=== PATIENT | male | born 1955 | race Caucasian/White ===

== ENCOUNTER 2024-12-03 09:27 | Emergency (ER) | payer MEDICARE, OTHER, SELFPAY ==
--- OUTSIDE RECORDS SUMMARY | 2024-11-21 15:15 | XMS_ITS | Encounter Summary ---
Author Organization [facility] [employer] [employer] s tem Address [facility] [id number] [address] [place] [address] Care Team Providers Care Credit Resolution Representative Name Role Phone Julio Valdivia MD Primary Care Provider [phone] Encounter Details Date Type Department Care Team (Late st Contact Info) Description 11/21/2024 3:15 PM EDT Office Visit [facility] [address] [place] [phone] Julio Valdivia MD [address] [place] [address], [address] [place], [place] [phone] Reactive airways dysfunction syndrome (CMS-HCC) (Primary Dx); Berylliosis (CMS-HCC); Class 1 obesity due to excess calories without serious comorbidity with body mass index (BMI) of 33.0 to 33.9 in adult Social History Tobacco Use Types Packs/Day Years Used Date Smoking Tobacco: Former Cigarettes 1.5 30.1 0 03/05/1968 - 04/03/1998 Smokeless Tobacco: Former Chew Alcohol Use Standard Drinks/Week Comments Not Currently 0 (1 standard drink = 0.6 oz pur e alcohol) Overall Financial Resource Strain (CARDIA) Answe r Date Recorded How hard is it for you to pa y for the very basics like food, housing, medical care, and heating? Not hard at all 06/14/2022 PHQ-2 Answer Date Recorded Total Score 2 07/01/2024 PRAPARE - Transportation Answer Date Re corded In the past 12 months, has l ack of transportation kept you from medical appointments or from getting medications? No 06/03 In the past 12 months, has l ack of transportation kept you from meetings, work, or from getting things needed for daily living? No 06/14/2022 Housing Instability Answer Date Recorde d Are you worried or concerned that in the next two months you may not have stable housing that you own, rent or stay in as a part of a household? No 06/14/2022 Childcare Answer Date Recorded Childcare Unknown 08/14/2018 Employment Answer Date Recorded Employment Unknown 08/14/2018 Hunger Screening Answer Date Recorded Within the past 12 months we worried whether our food would run out before we got money to buy more. Never True 04/29/2024 Within the past 12 months th e food we bought just didn't last and we didn't have money to get more. Never True 04/29/2024 Purpose - Life Answer Date Recorded Purpose and direction in life Unknown Sex and Gender Information Value Date Recorded Sex Assigned at Not on file Legal Sex Male 11:26 AM EDT Gender Identity Not on file Sexual Orientation Not on file Travel History Travel Start Travel End [facility] 11/02/2024 11/19/2024 documented as of this encounter Last Filed Vital Signs Vital Sign Reading Time Taken Comments Blood Pressure 139/85 11/21/2024 3:25 PM EDT Pulse 78 11/21/2024 3:25 PM EDT Temperature - - Respiratory Rate - - Oxygen Saturation 94% 11/21/2024 3:25 PM EDT Inhaled Oxygen Concentration - - Weight 114.3 kg (252 lb) 11/21/2024 3:25 PM EDT Height 185.4 cm (6' 1 ) 11/21/2024 3:25 PM EDT Body Mass Index 33.25 11/21/2024 3:25 PM EDT documented in this encounter Progress Notes * Julio Valdivia MD - 11/21/2024 3:15 PM EDT Subjective Patient ID: Idris Fierro is a 69 y.o. male. 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 Over the years he has also had symptoms suggestive of reactive airway disease. He was traveling recently. Since getting home he has noted frequent harsh nonproductive cough, easy exertional dyspnea, and some chest tightness. He feels like he has phlegm but it doesn't come up. No fever or chills. Some minor URI symptoms. No anginal chest pain or edema. The following portions of the patient's history were reviewed and updated as appropriate: allergies, current medications, past medical history, past social history, and problem list. Review of Systems Objective Physical Exam Constitutional: Comments: He is not acute distressed. SaO2 94% at rest in room air. HENT: Nose: No congestion or rhinorrhea. Cardiovascular: Rate and Rhythm: Normal rate and regular rhythm. Heart sounds: No murmur heard. No gallop. Pulmonary: Comments: Occasional harsh bronchospastic cough. No rales or wheezes. Musculoskeletal: Right lower leg: No edema. Left lower leg: No edema. Lymphadenopathy: Cervical: No cervical adenopathy. Assessment/Plan His weight contributes to his chronic dyspnea but is not the primary or only issue at this time. Hehas in the past had Wixela inhaler and use of that might provide his some benefit. He is interestedin GLP1 agonist trial for weight loss. Medication discussed. Will send in a script and see if it iscovered/affordable. Diagnoses and all orders for this visit: Reactive airways dysfunction syndrome ([facility]-HCC) - predniSONE (DELTASONE) 20 mg tablet; Take 2 tablets (40 mg total) by mouth in the morning for 5 days. - doxycycline (VIBRA-TABS) 100 mg tablet; Take 1 tablet (100 mg total) by mouth in the morning and 1 tablet (100 mg total) in the evening. Do all this for 7 days. - guaiFENesin (MUCINEX) 1,200 mg tablet extended release 12hr; Take 1 tablet by mouth in the morning and 1 tablet in the evening. Berylliosis ([facility]) Class 1 obesity due to excess calories without serious comorbidity with body mass index (BMI) of 33.0 to 33.9 in adult - tirzepatide, weight loss, 2.5 mg/0.5 mL pen injector; Inject 2.5 mg under the skin every 7 days. documented in this encounter Plan of Treatment Upcoming Encounters Date Type Department Care Team (Late st Contact Info) Description 05/12/2025 1:00 PM EDT Office Visit [facility] [address] [place] [address] [place] [address] [place] [phone] Sundeep Rodriguez MD [address] [place] [address] documented as of this encounter Goals Goal Patient Goal Type Associated Problems Recent Progress Patient-Stated? Author Home, outpt therapy General Yes Teir Fernandez LSW Note: Evaluation of progress towards goal: Pt's discharge goal is home with and outpt therapy. 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
[2024-12-03] VITALS (16 sets, daily range): BP systolic 96–116; BP diastolic 68–87; PULSE 78–97; TEMP 36.7; O2SAT 57–96; BMI 31.7
--- OUTSIDE RECORDS SUMMARY | 2024-12-03 09:39 | XMS_ITS | Encounter Summary ---
Author Organization [employer] Sys [employer] Address [id number] [address] [place] [address] Care Team Providers Care Laboratory Chemist Name Role Phone Julio Valdivia MD Primary Care Provider [phone] Encounter Details Date Type Department Care Team (Latest Contact Info) Description 11/20/2024 Travel Social History Tobacco Use Types Packs/Day Years [...] file Travel History Travel Start Travel End [facility] 11/02/2024 11/19/2024 documented as of this encounter Plan of Treatment Upcoming Encounters Date Type Department Care Team (Late st Contact Info) Description 05/12/2025 1:00 PM EDT Office Visit [facility] [address] [place] [address] [place] [address] [phone] Sundeep Rodriguez MD [address] [place] [address] documented as of this encounter Goals Goal Patient Goal Type Associated Problems Recent Progress Patient-Stated? Author Home, outpt therapy General Yes Teri Fernandez LSW Note: Evaluation of progress towards goal: Pt's discharge goal is home with and outpt therapy. - J CARLOS KAUR 03/14/19 3:06 PM documented as of this encounter Visit Diagnoses Not on filedocumented in this encounter Additional Health Concerns Assessment Noted Time PHQ-9 Depression Total Score: 2 07/02/19 25 10:00 AM EDT documented as of this encounter Care Teams Laboratory Chemist Relationship Specialty Start Date End Date Julio Valdivia MD [address] [place] [address], [address] [place], [place] [phone] PCP - General Pediatrics 03/14/16 Adrian Torres RN [facility] Nurse - [employer] 07/19/23 documented as of this encounter
--- OUTSIDE RECORDS SUMMARY | 2024-12-03 09:39 | XMS_ITS | Encounter Summary ---
Author Organization [facility] [employer] Sys tem Address [id number] [address] [place] [address] Care Team Providers Care Help Desk Manager Name Role Phone Julio Valdivia MD Primary Care Provider [phone] Encounter Details Date Type Department Care Team (Late Contact Info) Description 03/24/2022 Orders Only [facility] [address] [facility] [address] [place] [phone] External, Scanning Provider Social History Tobacco Use Types Packs/Day Years Used Date Smoking Tobacco: Former Cigarettes 1.5 30.1 0 03/05/1968 - 04/03/1998 Smokeless Tobacco: Former Chew Alcohol Use Standard Drinks/Week Comments Not Currently 0 (1 standard drink = 0.6 oz pur e alcohol) PHQ-2 Answer Date Recorded Total Score 0 08/30/2020 Childcare Answer Date Recorded Childcare Unknown 08/14/2018 Employment Answer Date Recorded Employment Unknown 08/14/2018 Purpose - Life Answer Date Recorded Purpose and direction in life Unknown Sex and Gender Information Value Date Recorded Sex Assigned at Not on file Legal Sex Male 11:26 AM EDT Gender Identity Not on file Sexual Orientation Not on file Travel History Travel Start Travel End [facility] 11/02/2024 11/19/2024 documented as of this encounter Plan of Treatment Upcoming Encounters Date Type Department Care Team (Late Contact Info) Description 05/12/2025 1:00 PM EDT Office Visit [facility] [address] [place] [address] [place] [address] Sundeep Rodriguez MD [facility] [place] [address] documented as of this encounter Goals Goal Patient Goal Type Associated Problems Recent Progress Patient-Stated? Author Home, outpt therapy General Yes Teri Fernandez LSW Note: Evaluation of progress towards goal: Pt's discharge goal is home with and outpt therapy. - J CARLOS KAUR 03/14/19 3:06 PM documented as of this encounter Procedures Procedure Name Priority Date/Time Associated Diagnosis Comments MULTIPLE LABS Routine 03/23/2022 XR CHEST 2 VWS Routine 03/23/2022 documented in this encounter Results * Multiple labs (03/23/2022) 03/23/2022 us Scanning Provider External [facility] Final Result MANUALLY TRANSCRIBED RESULTS * X-ray chest 2 views (03/23/2022) Anatomical Region Laterality Modality Body, Chest N/A Computed Radiogr aphy 03/23/2022 us Scanning Provider External IMG DIAGNOSTIC IMAGIN G ORDERABLES Final Result documented in this encounter Visit Diagnoses Not on filedocumented in this encounter Additional Health Concerns Assessment Noted Time PHQ-9 Depression Total Score: 0 08/31/19 21 8:36 AM EDT documented as of this encounter Care Teams Help Desk Manager Relationship Specialty Start Date End Date Julio Valdivia MD [address] [place] [address], [address] [place] [address] PCP - General Pediatrics 03/14/16 Adrian Torres RN [facility] Nurse - [employer] 07/19/23 documented as of this encounter
--- OUTSIDE RECORDS SUMMARY | 2024-12-03 09:39 | XMS_ITS | Encounter Summary ---
Author Organization [facility] Sys tem Address [facility] [id number] [address] [place] [address] Care Team Providers Care High School Tutor Name Role Phone Julio Valdivia MD Primary Care Provider [phone] Encounter Details Date Type Department Care Team (Late st Contact Info) Description 03/15/2023 Orders Only [facility] [address] [phone] External, Scanning Provider Social History Tobacco Use [...] 06/14/2022 PHQ-2 Answer Date Recorded Total Score 0 08/30/2020 PRAPARE - Transportation Answer Date Re corded [...] got money to buy more. Never True 01/24/2023 Within the past 12 months th e food we bought just didn't last and we didn't have money to get more. Never True 01/24/2023 Purpose - Life Answer Date Recorded Purpose and direction in life Unknown Sex and Gender Information Value Date Recorded Sex Assigned at Not on file Legal Sex Male 11:26 AM EDT Gender Identity Not on file Sexual Orientation Not on file Travel History Travel Start Travel End [facility] 11/02/2024 11/19/2024 documented as of this encounter Plan of Treatment Upcoming Encounters Date Type Department Care Team (Late st Contact Info) Description 05/12/2025 1:00 PM EDT Office Visit [facility] [address] [place] [address] [place] [phone] Sundeep Rodriguez MD [facility] [place] [address] documented as of this encounter Goals Goal Patient Goal Type Associated Problems Recent Progress Patient-Stated? Author Home, outpt therapy General Yes Teri Fernandez LSW Note: Evaluation of progress towards goal: Pt's discharge goal is home with and outpt therapy. - J CARLOS KAUR 03/14/19 3:06 PM documented as of this encounter Procedures Procedure Name Priority Date/Time Associated Diagnosis Comments XR CHEST 2 VWS Routine 03/09/2023 documented in this encounter Results * X-ray chest 2 views (03/09/2023) Anatomical Region Laterality Modality Body, Chest N/A Computed Radiogr aphy 03/09/2023 us Scanning Provider External IMG DIAGNOSTIC IMAGIN G ORDERABLES Final Result documented in this encounter Visit Diagnoses Not on filedocumented in this encounter Additional Health Concerns Assessment Noted Time PHQ-9 Depression Total Score: 0 08/31/19 21 8:36 AM EDT documented as of this encounter Care Teams High School Tutor Relationship Specialty Start Date End Date Julio Valdivia MD [address] [place] [address], [address] [place] [phone] PCP - General Pediatrics 03/14/16 Adrian Torres RN [facility] 07/19/23 documented as of this encounter
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
--- OUTSIDE RECORDS SUMMARY | 2024-12-03 09:39 | XMS_ITS | Clinical Summary ---
Author Organization [facility] tem Address [facility] [id number] [address] [place] [address] Care Team Providers Care Supervisor [employer] Name Role Phone Julio Valdivia MD Primary Care Provider [phone] Allergies No known active allergies Medications alfuzosin (UROXATRAL) 10 mg 24 hr tablet Take 1 tablet (10 mg total) by mouth in the morning. 90 tablet 3 4 Active albuterol (PROVENTIL HFA;VENTOLIN HFA) 90 mcg/actuation inhaler INHALE 2 PUFFS BY MOUTH EVERY 6 HOURS NEEDED FOR SHORTNESS OF BREATH 5 Active guaiFENesin (MUCINEX) 1,200 mg tablet extended release 12hrIndications :Reactive airways dysfunction syndrome (CMS-HCC) Take 1 tablet by mouth in the morning and 1 tablet in the evening. 20 each 5 Active tirzepatide, weight loss, 2.5 mg/0.5 mL pen injectorIndicat ions:Class 1 obesity due to excess calories without serious comorbidity with body mass index (BMI) of 33.0 to 33.9 in adult Inject 2.5 mg under the skin every 7 days. 2 mL 5 Active predniSONE (DELTASONE) 20 mg tablet Take 2 tablets (40 mg total) by mouth in the morning for 5 days. 10 tablet 5 12/09/19 25 Active predniSONE (DELTASONE) 20 mg tabletIndicatio ns:Reactive airways dysfunction syndrome (CMS-HCC) Take 2 tablets (40 mg total) by mouth in the morning for 5 days. 10 tablet 5 11/27/19 25 doxycycline (VIBRA-TABS) 100 mg tabletIndicatio ns:Reactive airways dysfunction syndrome (CMS-HCC) Take 1 tablet (100 mg total) by mouth in the morning and 1 tablet (100 mg total) in the evening. Do all this for 7 days. 14 tablet 5 11/29/19 25 predniSONE (DELTASONE) 20 mg tablet Take 2 tablets (40 mg total) by mouth in the morning for 5 days. 10 tablet 5 12/04/19 25 Discontinu ed(Reorder ) Active Problems Patient Care Coordination No te Formatting of this note migh t be different from the original. Osteoarthritis/ GERD Care Plan: [03/23/2023] [employer] Added: Nurse to instruct on: the purpose of your medications and the importance of adherence the importance of your care plan the importance of preventative screenings and what they mean to your health your GERD and Osteoarthritis, its diagnosis and treatment the importance of recognizing daytime heartburn, nighttime heartburn, difficulty swallowing, indigestion, sore throat, feeling like something is stuck in the throat, and dry cough as a S&S of your GERD the importance of recognizing joint pain, joint tenderness, joint stiffness, loss of flexibility, limited range of motion, grating sensation, bone spurs, and clicking or cracking sound when a joints bends as a S&S of your Osteoarthritis Nurse to assist in: scheduling your appointments, as needed setting a goal to reduce pain, continue with current treatment plans, and increase joint mobility and range of motion Patient to verbalize understanding of: the importance of your care plan keeping a written list of your medications preventative screenings and what they mean to your health your medications and the importance of adherence monitoring Pain Scale your GERD, its diagnosis, process and treatment your Osteoarthritis, its diagnosis, process and treatment the importance of recognizing daytime heartburn, nighttime heartburn, difficulty swallowing, indigestion, sore throat, feeling like something is stuck in the throat, and dry cough as a S&S of your GERD the importance of recognizing joint pain, joint tenderness, joint stiffness, loss of flexibility, limited range of motion, grating sensation, bone spurs, and clicking or cracking sound when a joints bends as a S&S of your Osteoarthritis Patient to commit to: reduce pain continue with current treatment plans increase joint mobility and range of motion 2023 Wellness Goals: Over the next 12 months, Patient will go to appointments with: ENT/ Flash Designer Cut Off Operator Scorer Urologist Primary Care Provider Over the next 12 months, Patient will complete the following tests, immunizations, and preventative screenings: Annual Wellness Visit Depression Screening Fall Risk Assessment Flu vaccine Tdap Vaccine Prostate Screening 2023 Education: Problem Noted Date Diagnosed Date Lower urinary tract symptoms (LUTS) 02/05/2023 History of colonic polyps 06/15/2020 Overview (06/15/2020): Added automatically from request for surgery [id number] Screening for prostate cancer 02/04/2020 Overview (02/04/2020): 02/04/20: PSA 2.03 Berylliosis 01/12/2020 Knee pain 01/12/2020 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 Although it seems counter intuitive with his history of retention, I think it would be worth having him try Myrbetriq 50 mg nightly. We will see him in the short-term to recheck PVR. 02/04/20: Minimal improvement with Myrbetriq 50 mg. PVR 10. He is not interested in pursuing any additional diagnostic or treatment options at this time. 01/24/23: Persistent symptoms. Interested in a trial of Uroxatral. Also advised cutting back on his fluid intake. We will schedule cystoscopy Assessment & Plan (01/24/2023 5:07 PM EST): If his symptoms resolve with Uroxatral, he can cancel the cystoscopy. He is also due for his PSA. I will notify him of the results through [facility] Assessment & Plan (02/04/2020 4:41 PM EST): He would like to follow-up as needed. Assessment & Plan (12/10/2019 5:26 PM EDT): I advised that he monitor his blood pressure and discontinue if elevated. He will go to the lab to check PSA as well. I will call him with the results. Mechanical loosening of prosthetic knee 11/14/19 19 Overview (11/13/2018): Added automatically from request for surgery [id number] Primary osteoarthritis of right knee 01/31/2018 Overview (01/31/2018): Added automatically from request for surgery [id number] Erectile dysfunction 12/04/2017 Overview (12/04/2017): ED - successfully treated with sildenafil. Prescription for generic provided with recommendation to separate from tamsulosin by 4 hr Primary osteoarthritis of left knee 05/22/2017 Overview (05/22/2017): Added automatically from request for surgery [id number] Bilateral primary osteoarthritis of knee 018 Trochanteric bursitis of left hip 05/10/2017 Urinary retention 05/01/2017 Overview (04/29/2024): Lifelong history of voiding dysfunction Now with progressive luts. Some mild improvement with tamsulosin, no change with caffeine decreased consumption Improved with increase tamsulosin to b.i.d.. PVR improved. He is satisfied currently. Plan recheck 12 motvas 01/25: Tamsulosin no longer working. No improvement with Myrbetriq. Initial improvement with Uroxatral but that has also failed with poor flow and feelings of incomplete emptying. 02/27/2023: Cysto with bilobar hyperplasia. Findings reviewed with he and his after cystoscopy. Options are continuing Uroxatral versus consideration for surgical intervention with TURP. Side effects as outlined in the consent reviewed with him. He was going to discuss with his at home and let me know if you would like proceed. For now plan to continue Uroxatral. 04/29/24: stable using uroxatral Hematospermia 05/01/2017 Overview (05/01/2017): One episode of hematospermia 2016. This is benign. PSA normal. Reactive airways dysfunction syndrome 07/14/2015 BPH (benign prostatic hyperplasia) Encounters Date Type Department Care Team Description 12/03/2024 Orders Only [facility] [address] [place] [id number] Julio Valdivia MD 12/02/2024 Telephone [facility] [address] [facility] [place] [address] Julio Valdivia MD 11/21/2024 3:15 PM EDT Office Visit [facility] [address] [place] [address] Julio Valdivia MD Reactive airways dysfunction syndrome (CMS-HCC) (Primary Dx); Berylliosis (CMS-HCC); Class 1 obesity due to excess calories without serious comorbidity with body mass index (BMI) of 33.0 to 33.9 in adult 11/20/2024 Travel from Last 3 Months Immunizations Immunization Administration Dates Next Due COVID-19, mRNA, LNP-S, PF, 1 00mcg/0.5mL Dose 06/29/2020,06/01/2020 Hep B, Adolescent or Pediatric 11/16/2011,2011,05/04/2011 Influenza High Dose Preservative Free IM 018 Influenza Vaccine, Quadrivalent, Adjuvanted 01/04,12/19/2021 Influenza, Injectable, quadrivalent (PF) 020,12/05/2018 Zoster Vaccine Recombinant 03/03/2020,12/16/2019 Family History Medical History Relation Name Comments Brain Tumor Brother Mackey syndrome Daughter Arthritis Father Idirs Fierro Blood Clots Father Idris Fierro Cirrhosis Father Idris Fierro non alcohol Heart attack Father Idris Fierro Snoring Father Idris Fierro Cancer Mother 92 skin Colon cancer Mother 92 Mental illness Mother 92 Other Mother 92 colon issues Snoring Mother 92 Thyroid disease Mother 92 No Known Problems Sister 1 Marge Arthritis Sister 2 Destini Arthritis Sister 3 Santos Arthritis Sister 4 Camilla No Known Problems Sister 5 Nasrin Glaucoma Sister 6 Sheila No Known Problems Son Relation Name Status Comments Brother Daughter Alive Father Idris Fierro Mother 92 Sister 1 Marge Alive Sister 2 Destini Alive Sister 3 Santos Alive Sister 4 Camilla Alive Sister 5 Nasrin Alive Sister 6 Sheila Alive Son Alive Social History Tobacco Use Types Packs/Day Years Used Date Smoking Tobacco: Former Cigarettes 1.5 30.1 0 03/05/1968 - 04/03/1998 Smokeless Tobacco: Former Chew Tobacco Cessation:Counseling Given: No Alcohol Use Standard Drinks/Week Comments Not Currently [...] file Travel History Travel Start Travel End [facility] 11/02/2024 11/19/2024 Last Filed Vital Signs Vital Sign Reading Time Taken Comments Blood Pressure 139/85 11/21/2024 3:25 PM EDT Pulse 78 11/21/2024 3:25 PM EDT Temperature 36.4 C (97.6 F) 01/13/2022 1:22 PM EST Respiratory Rate 15 12/14/2020 10:25 AM EDT Oxygen Saturation 94% 11/21/2024 3:25 PM EDT Inhaled Oxygen Concentration - - Weight 114.3 kg (252 lb) 11/21/2024 3:25 PM EDT Height 185.4 cm (6' 1 ) 11/21/2024 3:25 PM EDT Body Mass Index 33.25 11/21/2024 3:25 PM EDT Plan of Treatment Upcoming Encounters Date Type Department Care Team (Late st Contact Info) Description 05/12/2025 1:00 PM EDT Office Visit [facility] [address] [place] [address] [place] [address] [place] [address] Sundeep Rodriguez MD [address] [place] [address] Health Maintenance Due Date Last Done Comments Adult BMI Follow Up Plan 05/04/1973 DTaP,Tdap and Td Vaccines (1 - Tdap) 05/04/1974 Abdominal Aortic Aneurysm (A AA) Screen 05/04/2020 COVID-19 Vaccine (2023-2 5 season) 2024 11/27/2023, 01/26/2023, 12/19/2021, Additional history exists Influenza Vaccine 11/03/2024 11/27/2023, , 12/19/2021, Additional history exists Depression Screening 07/01/2025 07/01/2024 Fall Risk Screening 07/01/2025 07/01/2024 Medicare Annual Wellness Visit 07/01/2025 07/01/2024 Adult BMI Screening 11/21/2025 11/21/2024 Tobacco Screening 11/21/2025 11/21/2024 Colonoscopy 07/23/2030 07/23/2020, 07/04, 07/23/2020, Additional history exists Zoster (Shingles) Vaccine Completed 03/03/2020, Goals Goal Patient Goal Type Associated Problems Recent Progress Patient-Stated? Author Home, outpt therapy General Yes Teri Fernandez LSW Note: Evaluation of progress towards goal: Pt's discharge goal is home with and outpt therapy. - J CARLOS KAUR 03/14/19 3:06 PM Medical Devices Implanted Type Area Mcat Tutor Device Identifier Shelf Expiration Date Model / Serial / Lot Cement Bn Palacos Radpq 40g Rpl [id number] - [id number] Implanted:Qty : 2 on 06/12/2017 by Rubén Hayes MD at [facility] Cement Left: Knee [employer] 02/01/2022 [id number] 1 / / [id number] Cmnt Bn Bio 40gm Rpl [id number] +[id number] - [id number] Implanted:Qty : 2 on 03/14/2019 by Rubén Hayes MD at [facility] Cement Right: Knee [employer] 02/01/2023 [id number] / / [id number] Mesh Clgn Parietex 4.6cm Comp Rsrb Xpd Ptch Slf Cntr Srg Sm Rpl [id number] +[id number] - Sna - [id number] Implanted:Qty : 1 on 12/14/2020 by Abner Maldonado DO at [facility] Mesh N/A: Abdomen [employer] 10/02/2024 PCO4VP / NA / [id number] Knee All-Poly Pat 38mm - [id number] Implanted:Qty : 1 on 06/12/2017 by Rubén Hayes MD at [facility] Orthopedic Implant Left: Knee [employer] 04/04/2025 [id number] / / [id number] Cmpt Fem 10 Std Kn Lt Cmnt - [id number] Implanted:Qty : 1 on 06/12/2017 by Rubén Hayes MD at [facility] Orthopedic Implant Left: Knee [employer] 06/02/2026 [id number] / / [id number] Ins Artc 10-12 G-H 11mm Kn Lt - [id number] Implanted:Qty : 1 on 06/12/2017 by Rubén Hayes MD at [facility] Orthopedic Implant Left: Knee [employer] 01/03/2024 [id number] / / [id number] Cmpt Fem 10 Std Kn Rt Cmnt - [id number] Implanted:Qty : 1 on 03/12/2018 by Rubén Hayes MD at [facility] Orthopedic Implant Right: Knee [employer] 11/03/2027 [id number] 2 / / [id number] Cmpt Ptlr 38mm Alply Psn - [id number] Implanted:Qty : 1 on 03/12/2018 by Rubén Hayes MD at [facility] Orthopedic Implant Right: Knee [employer] 01/02/2026 [id number] 8 / / [id number] Ins Artc 10-12 G-H 11mm Kn Rt - [id number] Implanted:Qty : 1 on 03/12/2018 by Rubén Hayes MD at [facility] Orthopedic Implant Right: Knee [employer] 10/02/2022 [id number] 1 / / [id number] Ins Artc 6-9 G-H 12mm Kn Rt Ps - [id number] Implanted:Qty : 1 on 03/14/2019 by Rubén Hayes MD at [facility] Orthopedic Implant Right: Knee [employer] 01/03/2021 [id number] 2 / / [id number] Bsplt Tib 5d G Kn Lt Cmnt Stm - [id number] Implanted:Qty : 1 on 06/12/2017 by Rubén Hayes MD at [facility] Plate Left: Knee [employer] 01/02/2027 [id number] / / [id number] Bsplt Tib 5d G Kn Rt Cmnt Stm - [id number] Implanted:Qty : 1 on 03/12/2018 by Rubén Hayes MD at [facility] Plate Right: Knee [employer] 11/03/2027 [id number] 2 / / [id number] Scr Headframe 25mm 2.5mm Ea=Bill-Only - [id number] Implanted:Qty : 1 on 06/12/2017 by Rubén Hayes MD at [facility] Screw Left: Knee [employer] [id number] 5 / / [employer] Biomet Bone Cement R 1 X 40 Rapid Curing Synthetic Resin Implanted:Qty : 2 on 03/12/2018 by Rubén Hayes MD at [facility] Right: Knee [employer] 03/04/2022 / / [id number] Description:NO CHARGE--TRIAL CEMENT Persona Revision Stem Extension 6mm Offset Splined 16mm Diameter +135mm Length Implanted:Qty : 1 on 03/14/2019 by Rubén Hayes MD at [facility] Right: Knee [employer] 12/02/2028 N/A / / [id number] Description:REF# [id number] Persona Revision Femur Cemented Plus Right Size 9+ Implanted:Qty : 1 on 03/14/2019 by Rubén Hayes MD at [facility] Right: Knee [employer] 12/02/2028 N/A / / [id number] Explanted Type Area Mcat Tutor Device Identifier Shelf Expiration Date Model / Serial / Lot Scr Headframe 25mm 2.5mm - [id number] Explanted:Qty: 1 on 03/12/2018 by Rubén Hayes MD at [facility] Screw Right: Knee [employer] 03/04/2028 [id number] / / [id number] Scr Headframe 25mm 2.5mm - [id number] Explanted:Qty: 1 on 03/14/2019 by Rubén Hayes MD at [facility] Screw Right: Knee [employer] 02/01/2029 [id number] -25 / / [id number] Description:USED FOR FIXATIO N OF CUTTING BLOCK ONLY Procedures Procedure Name Priority Date/Time Associated Diagnosis Comments COLONOSCOPY 07/23/2020 11:10 AM EDT from Last 3 Months or Most Recently Relevant to Health Maintenance Results * Colonoscopy (07/23/2020 11:10 AM EDT) 07/23/2020 11:1 0 AM EDT Narrative PM CARDIOVASCULAR - 07/23/2020 11:48 AM EDT [facility] Patient Name: Idris Fierro Procedure Date No Time: 07/23/2020 CSN: [id number] Date of : 1955 Admit Type: Outpatient Age: 65 Gender: Male Attending MD: Corrine Locke MD Procedure: Colonoscopy Indications: High risk colon cancer surveillance: Personal history of colonic polyps Providers: Corrine Locke MD Referring MD: Kishore Sedation: Medicines: Monitored Anesthesia Care Complications: No immediate complications. Procedure: Pre-Anesthesia Assessment: - Prior to the procedure, a History and Physical was performed, and patient medications and allergies were reviewed. The patient is competent. The risks and benefits of the procedure and the sedation options and risks were discussed with the patient. All questions were answered and informed consent was obtained. Patient identification and proposed procedure were verified by the physician, the nurse and the chief engineering division in the procedure room. Mental Status Examination: normal. Airway Examination: normal oropharyngeal airway and neck mobility. Respiratory Examination: clear to auscultation. CV Examination: normal. Prophylactic Antibiotics: The patient does not require prophylactic antibiotics. Prior Anticoagulants: The patient has taken no previous anticoagulant or antiplatelet agents. ASA Grade Assessment: II - A patient with mild systemic disease. After reviewing the risks and benefits, the patient was deemed in satisfactory condition to undergo the procedure. The anesthesia plan was to use monitored anesthesia care (MAC). Immediately prior to administration of medications, the patient was re-assessed for adequacy to receive sedatives. The heart rate, respiratory rate, oxygen saturations, blood pressure, adequacy of pulmonary ventilation, and response to care were monitored throughout the procedure. The physical status of the patient was re-assessed after the procedure. After I obtained informed consent, the scope was passed under direct vision. Throughout the procedure, the patient's blood pressure, pulse, and oxygen saturations were monitored continuously. The Colonoscope was introduced through the anus and advanced to the cecum, identified by the appendiceal orifice, ileocecal valve and palpation. The entire colon was not well visualized. The quality of the bowel preparation was poor. The patient tolerated the procedure well. Findings: Multiple small and large-mouthed diverticula were found in the entire colon. There was no evidence of diverticular bleeding. Non-bleeding internal hemorrhoids were found during retroflexion. The hemorrhoids were moderate, medium-sized and Grade II (internal hemorrhoids that prolapse but reduce spontaneously). Estimated Blood Loss: Estimated blood loss: none. Impression: - Preparation of the colon was poor. - Severe diverticulosis in the entire examined colon. There was no evidence of diverticular bleeding. - Non-bleeding internal hemorrhoids. - No specimens collected. Recommendation: - Discharge patient to home (ambulatory). - High fiber diet for the rest of the patient's life. - Repeat colonoscopy in 10 months for surveillance. - Return to my office PRN. Procedure Code(s): --- Professional --- G0105, Colorectal cancer screening; colonoscopy on individual at high risk Diagnosis Code(s): --- Professional --- Z12.11, Encounter for screening for malignant neoplasm of colon Z86.010, Personal history of colonic polyps K64.1, Second degree hemorrhoids K57.30, Diverticulosis of large intestine without perforation or abscess without bleeding CPT copyright 2019 [employer] [place] [employer]. All rights reserved. The codes documented in this report are preliminary and upon ammunition storekeeper review may be revised to meet current compliance requirements. MD Corrine Stauffer MD 07/23/2020 11:48:08 AM This report has been signed electronically. Corrine Locke MD Number of Addenda: 0 Note Initiated On: 07/23/2020 11:10 AM Procedure Note Corrine Locke MD - 07/23/2020 [facility] Patient Name: Idris Fierro Procedure Date No Time: 07/23/2020 CSN: [id number] Date of : 1955 Admit Type: Outpatient Age: 65 Gender: Male Attending MD: Corrine Locke MD Procedure: Colonoscopy Indications: High risk colon cancer surveillance: Personalhistory of colonic polyps Providers: Corrine Locke MD Referring MD: Moderate Sedation: Medicines: Monitored Anesthesia Care Complications: No immediate complications. Procedure: Pre-Anesthesia Assessment: - Prior to the procedure, a History and Physicalwas performed, and patient medications and allergieswere reviewed. The patient is competent. The risks and benefits of the procedure and the sedation optionsand risks were discussed with the patient. Allquestions were answered and informed consent was obtained. Patient identification and proposed procedure were verified by the physician, the nurse and the chief engineering division in the procedure room. Mental Status Examination: normal. Airway Examination: normal oropharyngeal airway and neck mobility. Respiratory Examination: clear to auscultation. CV Examination: normal. Prophylactic Antibiotics: The patient doesnot require prophylactic antibiotics. Prior Anticoagulants: The patient has taken no previous anticoagulant or antiplatelet agents. ASA Grade Assessment: II - A patient with mild systemicdisease. After reviewing the risks and benefits, the patient was deemed in satisfactory condition to undergo the procedure. The anesthesia plan was to use monitored anesthesia care (MAC). Immediately prior to administration of medications, the patient was re-assessed for adequacy to receive sedatives. The heart rate, respiratory rate, oxygen saturations, blood pressure, adequacy of pulmonary ventilation,and response to care were monitored throughout the procedure. The physical status of the patient was re-assessed after the procedure. After I obtained informed consent, the scope was passed under direct vision. Throughout theprocedure, the patient's blood pressure, pulse, and oxygen saturations were monitored continuously. The Colonoscope was introduced through the anus and advanced to the cecum, identified by theappendiceal orifice, ileocecal valve and palpation. The entire colon was not well visualized. The quality of the bowel preparation was poor. The patient toleratedthe procedure well. Findings: Multiple small and large-mouthed diverticula were found in the entire colon. There was no evidence of diverticular bleeding. Non-bleeding internal hemorrhoids were found during retroflexion. The hemorrhoids were moderate, medium-sized and Grade II (internal hemorrhoids that prolapse but reduce spontaneously). Estimated Blood Loss: Estimated blood loss: none. Impression: - Preparation of the colon was poor. - Severe diverticulosis in the entire examinedcolon. There was no evidence of diverticular bleeding. - Non-bleeding internal hemorrhoids. - No specimens collected. Recommendation: - Discharge patient to home (ambulatory). - High fiber diet for the rest of the patient'slife. - Repeat colonoscopy in 10 months forsurveillance. - Return to my office PRN. Procedure Code(s): --- Professional --- G0105, Colorectal cancer screening; colonoscopy on individual at high risk Diagnosis Code(s): --- Professional --- Z12.11, Encounter for screening for malignantneoplasm of colon Z86.010, Personal history of colonic polyps K64.1, Second degree hemorrhoids K57.30, Diverticulosis of large intestine without perforation or abscess without bleeding CPT copyright 2019 [employer] [place] [employer]. All rights reserved. The codes documented in this report are preliminary and upon ammunition storekeeper reviewmay be revised to meet current compliance requirements. MD Corrine Stauffer MD 07/23/2020 11:48:08 AM This report has been signed electronically. Corrine Locke MD Number of Addenda: 0 Note Initiated On: 07/23/2020 11:10 AM us Corrine Locke MD GI PROCEDURE ORDERABLES Final R esult PM CARDIOVASCULAR from Last 3 Months or Most Recently Relevant to Health Maintenance Insurance MEDICARE [facility] [place] [facility]PART[facility] OF LAB[facility] Advance Directives * Full Code (Latest Code Status on File) Date Activated Date Inactivated Comments 06/12/2017 11:51 AM 06/12/2017 8:03 PM Healthcare Agents on File Name Relationship Healthcare Agent Relationshi p Communication Jessica Pert Spouse Health Care Agent Care Teams Supervisor [employer] Relationship Specialty Start Date End Date Julio Valdivia MD [address] [place] [address], [address] [place] [address] PCP - General Pediatrics 03/14/16 Adrian Torres RN [facility] Nurse - [employer] 07/19/23
--- OUTSIDE RECORDS SUMMARY | 2024-12-03 09:39 | XMS_ITS | Encounter Summary ---
Author Organization [facility] Address [id number] [address] [place] [address] Care Team Providers Care Electronics Supervisor Name Role Phone Julio Valdivia MD Primary Care Provider [phone] Encounter Details Date Type Department Care Team (Late st Contact Info) Description 12/28/2020 Refill [facility] [address] [place] [address] [place] [phone] Odalis Dhillon I, PA [address] [place] [address] Urinary retention Social History Tobacco Use Types Packs/Day Years [...] file Travel History Travel Start Travel End [facility] and [facility] 11/02/2024 11/19/2024 COVID-19 Exposure Response Date Recorded In the last month, have you been in contact with someone who was confirmed or suspected to have Coronavirus / COVID-19? No / Unsure 12/29/2020 9:53 AM EDT documented as of this encounter Miscellaneous Notes * Telephone Encounter - HODAN Kan - 12/28/2020 12:14 AM EDT Received a refill request for Myrbetriq, but I thought patient was not taking it. Please all and see if he is. If so, I will refill, but he will be due for a follow-up in Feb which he should arrange documented in this encounter Plan of Treatment Upcoming Encounters Date Type Department Care Team (Late st Contact Info) Description 05/12/2025 1:00 PM EDT Office Visit [facility] [address] [place] [address] [place] [phone] Sundeep Rodriguez MD [address] [place] [address] documented as of this encounter Goals Goal Patient Goal Type Associated Problems Recent Progress Patient-Stated? Author Home, outpt therapy General Yes Teri Fernandez LSW Note: Evaluation of progress towards goal: Pt's discharge goal is home with and outpt therapy. - J CARLOS KAUR 03/14/19 3:06 PM documented as of this encounter Visit Diagnoses Diagnosis Urinary retention Unspecified retention of urine documented in this encounter Additional Health Concerns Assessment Noted Time PHQ-9 Depression Total Score: 0 08/31/19 21 8:36 AM EDT documented as of this encounter Care Teams Electronics Supervisor Relationship Specialty Start Date End Date Julio Valdivia MD [address] [place] [address], [address] [place] [address] PCP - General Pediatrics 03/14/16 Adrian Torres RN [facility] Nurse - [employer] 07/19/23 documented as of this encounter
--- OUTSIDE RECORDS SUMMARY | 2024-12-03 09:39 | XMS_ITS | Encounter Summary ---
Author Organization [facility] Address [address] [facility] [place] [address] Care Team Providers Care Legal Project Manager Name Role Phone Julio Valdivia MD Primary Care Provider [phone] Encounter Details Date Type Department Care Team (Late st Contact Info) Description 07/26/2022 Abstract [facility] [address] [place] [address] Maria Eugenia Carter MD [address] [place] [address] Social History Tobacco Use Types Packs/Day Years Used Date Smoking Tobacco: Former Cigarettes Q uit: 1996 Smokeless Tobacco: Never Tobacco Cessation:Counseling Given: Not Answered Alcohol Use Standard Drinks/Week Comments Not Currently 0 (1 standard drink = 0.6 oz pur e alcohol) Caffeine: 2-3 cups/day Sex and Gender Information Value Date Recorded Sex Assigned at Not on file Legal Sex Male 7:14 PM EDT Gender Identity Not on file Sexual Orientation Not on file documented as of this encounter Plan of Treatment Not on file documented as of this encounter Visit Diagnoses Not on filedocumented in this encounter Care Teams Legal Project Manager Relationship Specialty Start Date End Date Julio Valdivia MD [address] [place] [address], [address] [place], [place] [phone] PCP - General Family Medicine 09/25/24 documented as of this encounter
--- OUTSIDE RECORDS SUMMARY | 2024-12-03 09:39 | XMS_ITS | Encounter Summary ---
Author Organization [facility] Address [id number] [address] [place] [address] Care Team Providers Care Community Health Program Coordinator Name Role Phone Julio Valdivia MD Primary Care Provider [phone] Reason for Visit * Reason Onset Date Comments Med Refill 07/10/2017 Encounter Details Date Type Department Care Team (Late st Contact Info) Description 07/10/2017 Refill [facility] [address] [place] [phone] Sundeep Rodriguez MD [address] [place] [address] Urinary retention (Primary Dx) Social History Tobacco Use Types Packs/Day Years Used Date Smoking Tobacco: Former Cigarettes Q uit: 04/03/1998 Smokeless Tobacco: Never Alcohol Use Standard Drinks/Week Comments No 0 (1 standard drink = 0.6 oz pur e alcohol) Sex and Gender Information Value Date Recorded Sex Assigned at Not on file Legal Sex Male 11:26 AM EDT Gender Identity Not on file Sexual Orientation Not on file Travel History Travel Start Travel End [facility] and [facility] 11/02/2024 11/19/2024 documented as of this encounter Miscellaneous Notes * Telephone Encounter - Mary AtulseLORENE - 07/10/2017 4:03 PM EDT pts called and stated that it needs to be a 90 day supply instead of a 30 day supply and they need to go through [facility] in order for [facility] to cover it. [facility] documented in this encounter Plan of Treatment Upcoming Encounters Date Type Department Care Team (Late st Contact Info) Description 05/12/2025 1:00 PM EDT Office Visit [facility] [address] [place] [address] [address] [place] [phone] Sundeep Rodriguez MD [address] [place] [address] documented as of this encounter Visit Diagnoses Diagnosis Urinary retention- Primary Unspecified retention of urine documented in this encounter Care Teams Community Health Program Coordinator Relationship Specialty Start Date End Date Julio Valdivia MD [address] [place] [address], [address] [place], [place] [phone] PCP - General Pediatrics 03/14/16 Adrian Torres RN [facility] Nurse - [employer] 07/19/23 documented as of this encounter
--- OUTSIDE RECORDS SUMMARY | 2024-12-03 09:39 | XMS_ITS | Encounter Summary ---
Author Organization [facility] Address [id number] [address] [place] [address] Care Team Providers Care Lurer Name Role Phone Julio Valdivia MD Primary Care Provider [phone] Encounter Details Date Type Department Care Team (Late Contact Info) Description 03/14/2022 Orders Only [facility] [address] [employer] [address] [place] [phone] External, Scanning Provider Social History Tobacco Use [...] file Travel History Travel Start Travel End [facility] and [facility] 11/02/2024 11/19/2024 documented as of this encounter Plan of Treatment Upcoming Encounters Date Type Department Care Team (Late Contact Info) Description 05/12/2025 1:00 PM EDT Office Visit [facility] [address] [place] [address] Sundeep Rodriguez MD [address] [place] [phone] documented as of this encounter Goals Goal Patient Goal Type Associated Problems Recent Progress Patient-Stated? Author Home, outpt therapy General Yes Teri Fernandez LSW Note: Evaluation of progress towards goal: Pt's discharge goal is home with and outpt therapy. - J CARLOS KAUR 03/14/19 3:06 PM documented as of this encounter Procedures Procedure Name Priority Date/Time Associated Diagnosis Comments CT FACIAL BONES WO CONT Routine 03/09/2022 documented in this encounter Results * CT facial bones without contrast (03/09/2022) Anatomical Region Laterality Modality Neuro, Face, Neuro Covera N/A Comput ed Tomography 03/09/2022 us Scanning Provider External IMG CT ORDERABLES Fin al Result documented in this encounter Visit Diagnoses Not on filedocumented in this encounter Additional Health Concerns Assessment Noted Time PHQ-9 Depression Total Score: 0 08/31/19 21 8:36 AM EDT documented as of this encounter Care Teams Lurer Relationship Specialty Start Date End Date Julio Valdivia MD [address] [place] [address], [address] [place] [address] PCP - General Pediatrics 03/14/16 Adrian Torres RN [facility] Nurse - [employer] 07/19/23 documented as of this encounter
--- OUTSIDE RECORDS SUMMARY | 2024-12-03 09:39 | XMS_ITS | Encounter Summary ---
Author Organization [facility] Address [address] [facility] [place] [address] Care Team Providers Care Curator Natural History Museum Name Role Phone Julio Valdivia MD Primary Care Provider [phone] Encounter Details Date Type Department Care Team ([facility] Contact Info) Description 12/20/2022 Abstract [facility] [place] [facility] [address] [place] [address] Maria Eugenia Carter MD [address] [place] [address] Social History Tobacco Use Types Packs/Day Years Used Date Smoking Tobacco: Former Cigarettes 2 32 0 03/05/1969 - 03/05/2001 Smokeless Tobacco: Never Comments:Quit smoking 20+ ye ars ago Alcohol Use Standard Drinks/Week Comments Not Currently 0 (1 standard drink = 0.6 oz pur e alcohol) Caffeine: 2-3 cups/day Sex and Gender Information Value Date Recorded Sex Assigned at Not on file Legal Sex Male 7:14 PM EDT Gender Identity Not on file Sexual Orientation Not on file COVID-19 Exposure Response Date Recorded In the last 10 days, have yo u been in contact with someone who was confirmed or suspected to have Coronavirus/COVID-19? No / Unsure 12/19/2022 11:12 PM EDT documented as of this encounter Plan of Treatment Not on file documented as of this encounter Visit Diagnoses Not on filedocumented in this encounter Care Teams Curator Natural History Museum Relationship Specialty Start Date End Date Julio Valdivia MD [address] [place] [address], [address] [place] [address] PCP - General Family Medicine 09/25/24 documented as of this encounter
--- OUTSIDE RECORDS SUMMARY | 2024-12-03 09:39 | XMS_ITS | Encounter Summary ---
Author Organization [facility] Address [id number] [address] [place] [address] Care Team Providers Care Product Assurance Engineer Name Role Phone Julio Valdivia MD Primary Care Provider Encounter Details Date Type Department Care Team (Late st Contact Info) Description 03/12/2023 Orders Only [facility] [address] [phone] External, Scanning Provider Social History Tobacco Use [...] file Travel History Travel Start Travel End [facility] 11/02/2024 11/19/2024 documented as of this encounter Plan of Treatment Upcoming Encounters Date Type Department Care Team (Late st Contact Info) Description 05/12/2025 1:00 PM EDT Office Visit [facility] [address] [place] [address] [place] [phone] Sundeep Rodriguez MD [facility] [place] [address] documented as of this encounter Goals Goal Patient Goal Type Associated Problems Recent Progress Patient-Stated? Author Home, outpt therapy General Yes Teri Fernandez LSW Note: Evaluation of progress towards goal: Pt's discharge goal is home with and outpt therapy. - J CARLOS KAUR 03/14/19 3:06 PM documented as of this encounter Procedures Procedure Name Priority Date/Time Associated Diagnosis Comments MULTIPLE LABS Routine 03/09/2023 documented in this encounter Results * Multiple labs (03/09/2023) 03/09/2023 us Scanning Provider External [place] IMAGING Final Result MANUALLY TRANSCRIBED RESULTS documented in this encounter Visit Diagnoses Not on filedocumented in this encounter Additional Health Concerns Assessment Noted Time PHQ-9 Depression Total Score: 0 08/31/19 21 8:36 AM EDT documented as of this encounter Care Teams Product Assurance Engineer Relationship Specialty Start Date End Date Julio Valdivia MD [address] [place] [address], 1 [place] [address] PCP - General Pediatrics 03/14/16 Adrian Torres RN [facility] Nurse - [employer] 07/19/23 documented as of this encounter
--- OUTSIDE RECORDS SUMMARY | 2024-12-03 09:39 | XMS_ITS | Encounter Summary ---
Author Organization [facility] Address [id number] [address] [place] [address] Care Team Providers Care Line Crewman Name Role Phone Julio Valdivia MD Primary Care Provider [phone] Encounter Details Date Type Department Care Team (Late st Contact Info) Description 02/10/2022 Orders Only [facility] [address] [phone] Kristan Peck RMA Chronic maxillary sinusitis Social History Tobacco Use Types Packs/Day Years [...] file Travel History Travel Start Travel End [facility] 11/02/2024 11/19/2024 COVID-19 Exposure Response Date Recorded In the last month, have you been in contact with someone who was confirmed or suspected to have Coronavirus / COVID-19? No / Unsure 01/12/2022 3:26 PM EST documented as of this encounter Plan of Treatment Upcoming Encounters Date Type Department Care Team (Late st Contact Info) Description 05/12/2025 1:00 PM EDT Office Visit [facility] [address] [place] [address] [place] [address] Sundeep Rodriguez MD [facility] [place] [address] documented as of this encounter Goals Goal Patient Goal Type Associated Problems Recent Progress Patient-Stated? Author Home, outpt therapy General Yes Teri Fernandez LSW Note: Evaluation of progress towards goal: Pt's discharge goal is home with and outpt therapy. - J CARLOS KAUR 03/14/19 3:06 PM documented as of this encounter Procedures Procedure Name Priority Date/Time Associated Diagnosis Comments AMB REFERRAL TO ENT Routine 02/08/2022 Chronic maxillary sinusitis documented in this encounter Results * Ambulatory referral to ENT (02/08/2022) 02/08/2022 us Julio Valdivia MD OUTPATIENT REFERRAL ORDERABLE S Final Result MANUALLY TRANSCRIBED RESULTS documented in this encounter Visit Diagnoses Diagnosis Chronic maxillary sinusitis documented in this encounter Additional Health Concerns Assessment Noted Time PHQ-9 Depression Total Score: 0 08/31/19 21 8:36 AM EDT documented as of this encounter Care Teams Line Crewman Relationship Specialty Start Date End Date Julio Valdivia MD [address] [place] [address], [address] [place] [address] PCP - General Pediatrics 03/14/16 Adrian Torres RN [facility] Nurse - [employer] 07/19/23 documented as of this encounter
--- OUTSIDE RECORDS SUMMARY | 2024-12-03 09:39 | XMS_ITS | Encounter Summary ---
Author Organization [facility] Address [address] [place] [address] Care Team Providers Care Patient Care Technician Instructor Name Role Phone Unavailable Primary Care Provider Unavailabl e Source Comments In the event this information is protected by the Federal Confidentiality of Alcohol and Drug AbusePatient Records regulations: The Federal rules restrict any use of the information to criminally investigate or prosecute any alcohol or drug abuse patient.[facility] Reason for Visit * Reason Comments WELCOME AND APPONTMENT REMINDER LETTERS Sent [employer] Encounter Details Date Type Department Care Team (Late st Contact Info) Description 12/01/2024 Telephone Pulmonary Medicine [address] [place] [address] Sánchez Becker WELCOME AND APPONTMENT REMINDER LETTERS (Sent [employer]) Social History Tobacco Use Types Packs/Day Years Used Date Smoking Tobacco: Never Assessed Sex and Gender Information Value Date Recorded Sex Assigned at Male 04/01/2024 9:04 AM EST Legal Sex Male 9:24 AM EST Gender Identity Male 04/01/2024 9:04 AM EST Sexual Orientation Not on file documented as of this encounter Miscellaneous Notes * Telephone Encounter - Sánchez Kumar - 12/01/2024 10:37 AM EDT Welcome and Appointment reminder letter created mailed to patient [employer] TRACKING NUMBER: [id number] Sánchez Kumar documented in this encounter Plan of Treatment Upcoming Encounters Date Type Department Care Team ([facility] st Contact Info) Description 04/13/2025 10:00 AM EST Appointment Radiology [address] [address] Chronic beryllium disease ( 04/13/2025 11:00 AM EST Procedure Pulmonary Medicine [address] [address] Marimar Myers Fct Lab Main [address] [place] [address] [address] [place] [address] Chronic beryllium disease ( 04/13/2025 11:15 AM EST Procedure Pulmonary Medicine [address] [address] Marimar Myers [facility] Lab Main [address] [place] [address] [address] [place] [address] Chronic beryllium disease ( 04/13/2025 12:00 PM EST Office Visit Pulmonary Medicine [address] [place] [address] Anila Higgins MD [address] [place] [address] [address] Chronic beryllium disease ( documented as of this encounter Visit Diagnoses Not on filedocumented in this encounter
--- OUTSIDE RECORDS SUMMARY | 2024-12-03 09:39 | XMS_ITS | Encounter Summary ---
Author Organization [facility] Address [id number] [address] [place] [address] Care Team Providers Care Tennis Centre Manager Name Role Phone Julio Valdivia MD Primary Care Provider [phone] Reason for Visit * Reason Onset Date Comments Med Refill 02/06/2022 Encounter Details Date Type Department Care Team (Late st Contact Info) Description 02/06/2022 Refill [facility] [address] [phone] Kati Singh, LORENE Social History Tobacco Use Types Packs/Day Years [...] Travel End [facility] 11/02/2024 11/19/2024 COVID-19 Exposure Response [...] Visit [facility] [address] [place] [address] Sundeep Rodriguez MD [address] [place] [phone] documented as of this encounter Goals Goal [...] documented as of this encounter Care Teams Tennis Centre Manager Relationship Specialty Start Date End Date Julio Valdivia MD [address] [place] [address], [address] [place] [address] PCP - General Pediatrics 03/14/16 Adrian Torres RN [facility] Nurse - [employer] 07/19/23 documented as of this encounter
--- OUTSIDE RECORDS SUMMARY | 2024-12-03 09:39 | XMS_ITS | Encounter Summary ---
Author Organization [facility] Address [address] [place] [address] Care Team Providers Care Tree Tapping Laborer Name Role Phone Unavailable Primary Care Provider Unavailabl e Source Comments In the event this information is protected by the Federal Confidentiality of Alcohol and Drug AbusePatient Records regulations: The Federal rules restrict any use of the information to criminally investigate or prosecute any alcohol or drug abuse patient.[facility] Reason for Referral * MRI/CT (Routine) - Authorized Specialty Diagnoses / Procedures Referred By Ulises edgar Referred To Contact CT IMAGING Diagnoses Interstitial pulmonary disease (HCC) Procedures CT CHEST WO IVCON DIAGNOSTIC COMPUTED TOMOGRAPHY THORAX W/O CNTRST Anila Higgins MD [address] [place] [address] Phone: tel: fax: [facility] IMAG[facility] [place] [address] Referral ID Status Reason Start Date Expiration Date Visits Requested Visits Authorized [id number] Authorized Auto-Generat ed Referral 11/24/2024 12/24/2025 1 1 * Outpatient Procedure (Routine) - Authorized Specialty Diagnoses / Procedures Referred By Ulises edgar [facility] Diagnoses Chronic beryllium disease (HCC) Procedures SPIROMETRY WITH DILATOR IF OBSTRUCTED BRNCDILAT RSPSE SPMTRY PRE&POST-BRNCDILAT ADMN Anila Higgins MD [address] [place] [address] [address] Phone: tel: fax: [facility] [place] [address] [place], [place] [phone] Referral ID Status Reason Start Date Expiration Date Visits Requested Visits Authorized [id number] Authorized Auto-Generat ed Referral 11/24/2024 12/24/2025 1 1 * Outpatient Procedure (Routine) - Authorized Specialty Diagnoses / Procedures Referred By Contac t Referred To Contact [facility] Diagnoses Chronic beryllium disease (HCC) Procedures LUNG DIFFUSION CAPACITY (DLCO) DIFFUSING CAPACITY Anila Higgins MD [address] [place] [address] Phone: tel: fax: [facility] [place] [address] [place], [place] [phone] Referral ID Status Reason Start Date Expiration Date Visits Requested Visits Authorized [id number] Authorized Auto-Generat ed Referral 11/24/2024 12/24/2025 1 1 Encounter Details Date Type Department Care Team (Late st Contact Info) Description 11/24/2024 Orders Only Pulmonary Medicine [address] [place] [address] Precious Gaston, analysis engineer beryllium disease (HCC) (Primary Dx); Interstitial pulmonary disease (HCC) Social History Tobacco Use Types Packs/Day Years [...] Care Team (Late st Contact Info) Description 04/13/2025 10:00 AM EST Appointment Radiology [address] [place] [address] Chronic beryllium disease ( 04/13/2025 11:00 AM EST Procedure Pulmonary Medicine [address] [address] Marimar Myers Fct Lab Main 6 [facility] [address] [place] [address] Chronic beryllium disease ( 04/13/2025 11:15 AM EST Procedure Pulmonary Medicine [address] [address] Marimar Myers Fct Lab Main 6 [facility] [address] [place] [address] Chronic beryllium disease ( 04/13/2025 12:00 PM EST Office Visit Pulmonary Medicine [address] [address] Anila Higgins MD [address] [place] [address] Chronic beryllium disease ( Scheduled Orders Name Type Priority Associated Diagnoses Orde r Schedule LUNG DIFFUSION CAPACITY (DLCO) PFT Routine Chronic beryllium disease (HCC) 1 Occurrences starting 11/24/2024 until 12/24/2025 SPIROMETRY WITH DILATOR IF OBSTRUCTED PFT Routine Chronic beryllium disease (HCC) 1 Occurrences starting 11/24/2024 until 12/24/2025 CT CHEST WO IVCON Radiology Routine Interstitial pulmonary disease (HCC) 1 Occurrences starting 11/24/2024 until 12/24/2025 documented as of this encounter Visit Diagnoses Diagnosis 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
--- OUTSIDE RECORDS SUMMARY | 2024-12-03 09:39 | XMS_ITS | Encounter Summary ---
Author Organization [facility] Sys tem Address [facility] [id number] [address] [place] [address] Care Team Providers Care Screw Machine Set Up Operator Name Role Phone Julio Valdivia MD Primary Care Provider [phone] Encounter Details Date Type Department Care Team (Late st Contact Info) Description 05/14/2023 Orders Only [facility] [address] [phone] External, Scanning Provider Social History Tobacco Use [...] file Travel History Travel Start Travel End [facility] 11/02/2024 11/19/2024 documented as of this encounter Plan of Treatment Upcoming Encounters Date Type Department Care Team (Late st Contact Info) Description 05/12/2025 1:00 PM EDT Office Visit [facility] [address] [place] [address] [place] [address] [phone] Sundeep Rodriguez MD [facility] [place] [address] documented as of this encounter Goals Goal Patient Goal Type Associated Problems Recent Progress Patient-Stated? Author Home, outpt therapy General Yes Teri Fernandez LSW Note: Evaluation of progress towards goal: Pt's discharge goal is home with and outpt therapy. - J CARLOS KAUR 03/14/19 3:06 PM documented as of this encounter Procedures Procedure Name Priority Date/Time Associated Diagnosis Comments SURGICAL PATHOLOGY Routine 05/03/2023 documented in this encounter Results * Surgical Pathology (05/03/2023) 05/03/2023 us Scanning Provider External PATHOLOGY/CYTOLOGY OR DERABLES Final Result MANUALLY TRANSCRIBED RESULTS documented in this encounter Visit Diagnoses Not on filedocumented in this encounter Additional Health Concerns Assessment Noted Time PHQ-9 Depression Total Score: 0 08/31/19 21 8:36 AM EDT documented as of this encounter Care Teams Screw Machine Set Up Operator Relationship Specialty Start Date End Date Julio Valdivia MD [address] [place] [address], 1 [place] [address] PCP - General Pediatrics 03/14/16 Adrian Torres RN [facility] Nurse - [employer] 07/19/23 documented as of this encounter
--- OUTSIDE RECORDS SUMMARY | 2024-12-03 09:39 | XMS_ITS | Encounter Summary ---
Author [facility] Address [id number] [address] [place] [address] Care Team Providers Care Gelatin Dynamite Packing Operator Name Role Phone Julio Valdivia MD Primary Care Provider [phone] Encounter Details Date Type Department Care Team (Late st Contact Info) Description 01/24/2023 Telephone [facility] [address] [place] [phone] Odalis Dhillon PA [address] [place] [address] Social History Tobacco Use Types Packs/Day Years [...] file Travel History Travel Start Travel End [facility] 11/02/2024 11/19/2024 documented as of this encounter Miscellaneous Notes * Telephone Encounter - HODAN Kan - 01/24/2023 5:04 PM EST Please schedule him for cystoscopy under local anesthesia with Dr. Rodriguez in [place]. Diagnosis: LUTS * Telephone Encounter - Cheryle Cagle - 01/24/2023 5:04 PM EST SPOKE WITH PT AND SCHEDULED FOR 02/27/23 AT 9A ARRIVE AT 8A documented in this encounter Plan of Treatment Upcoming Encounters Date Type Department Care Team (Late st Contact Info) Description 05/12/2025 1:00 PM EDT Office Visit [facility] [address] [place] [address] [place] [address] Sundeep Rodriguez MD [facility] [place] [address] documented as of this encounter Goals Goal [...] documented as of this encounter Care Teams Gelatin Dynamite Packing Operator Relationship Specialty Start Date End Date Julio Valdivia MD [address] [place] [address], [address] [place] [address] PCP - General Pediatrics 03/14/16 Adrian Torres RN [facility] 07/19/23 documented as of this encounter
--- OUTSIDE RECORDS SUMMARY | 2024-12-03 09:39 | XMS_ITS | Encounter Summary ---
Author Organization [facility] Address [address] [place] [address] Care Team Providers Care Train Engineer Name Role Phone Julio Valdivia MD Primary Care Provider [phone] Encounter Details Date Type Department Care Team ([facility] Contact Info) Description 01/22/2023 Clinisync Result Encounter [facility] External Department Unsolicited Maria Eugenia Carter MD [address] [facility] [address] [place] [address] Social History Tobacco Use Types Packs/Day Years [...] on file documented as of this encounter Procedures Procedure Name Priority Date/Time Associated Diagnosis Comments CT MAXILLOFACIAL W/O CONTRAST 01/22/2023 10:03 AM EST documented in this encounter Results * CT MAXILLOFACIAL W/O CONTRAST (01/22/2023 10:03 AM EST) Anatomical Region Laterality Modality Other 01/22/2023 10:0 3 AM EST Narrative 01/22/2023 2:54 PM EST Exam Date/Time: 01/22/2023 10:16 EST Reason for Exam: J32.4 Report IMPRESSION: BILATERAL ETHMOID AND MAXILLARY SINUSITIS. MINIMAL TO MILD BILATERAL MASTOIDITIS. CT MAXILLOFACIAL WITHOUT INTRAVENOUS CONTRAST MEDIUM. History: Chronic sinus drainage and headaches. Imaging guidance.. Technical factors: CT maxillofacial was obtained and formatted as 5 mm contiguous axial images. 2 mm mm contiguous axial images from the vertex to skull base. Sagittal and coronal reconstruction obtained during postprocessing. Comparison: CT maxillofacial, March 09, 2022.. Findings: Bilateral frontal sinuses patent. Partial opacification bilateral ethmoid sinuses. I lateral sphenoid sinuses patent. The lateral mucoperiosteal thickening, maxillary sinuses. Cutaneous radiopaque marker identified anterior to lateral margin right maxillary sinus. Minimal/mild opacification bilateral mastoid sinuses, right greater than left. Nasal septum midline. Mild mucosal thickening, bilateral ostiomeatal complexes. No fracture. No bone lesion. Bilateral ocular globes, extraocular muscles, optic nerves, retrobulbar fat without anomaly. All CT scans at this facility use dose modulation, iterative reconstruction, and/or weight based dosing when appropriate to reduce radiation dose to as low as reasonably achievable. Report Ordering Provider: Maria Eugenia Carter FINAL REPORT Dictated: 01/22/2023 2:51 pm Ziggy Banerjee MD Signed (Electronic Signature): 01/22/2023 2:51 pm Signed by: Ziggy Banerjee MD Transcribed by: DIOR Technologist: KATLIN Procedure Note Radiology, Radiologist, - 01/22/2023 Exam Date/Time: 01/22/2023 10:16 EST Reason for Exam: [id number] Report IMPRESSION: BILATERAL ETHMOID AND MAXILLARY SINUSITIS. MINIMAL TO MILD BILATERAL MASTOIDITIS. CT MAXILLOFACIAL WITHOUT INTRAVENOUS CONTRAST MEDIUM. History: Chronic sinus drainage and headaches. Imaging guidance.. Technical factors: CT maxillofacial was obtained and formatted as 5 mmcontiguous axial images. 2 mm mm contiguous axial images from the vertex to skullbase. Sagittal and coronal reconstruction obtained during postprocessing. Comparison: CT maxillofacial, March 09, 2022.. Findings: Bilateral frontal sinuses patent. Partial opacification bilateral ethmoid sinuses. I lateral sphenoid sinuses patent. The lateral mucoperiosteal thickening, maxillary sinuses. Cutaneous radiopaque marker identified anterior to lateral margin rightmaxillary sinus. Minimal/mild opacification bilateral mastoid sinuses, right greater thanleft. Nasal septum midline. Mild mucosal thickening, bilateral ostiomeatal complexes. No fracture. No bone lesion. Bilateral ocular globes, extraocular muscles, optic nerves, retrobulbarfat without anomaly. All CT scans at this facility use dose modulation, iterativereconstruction, and/or weight based dosing when appropriate to reduce radiation dose to as low asreasonably achievable. Report Ordering Provider: Maria Eugenia Carter FINAL REPORT Dictated: 01/22/2023 2:51 pm Ziggy Banerjee MD Signed (Electronic Signature): 01/22/2023 2:51 pm Signed by: Ziggy Banerjee MD Transcribed by: DIOR Technologist: KATLIN Maria Eugenia Carter MD [facility] Final Resul t documented in this encounter Visit Diagnoses Not on filedocumented in this encounter Care Teams Train Engineer Relationship Specialty Start Date End Date Julio Valdivia MD [address] [place] [address], 1 [place] [address] PCP - General Family Medicine 09/25/24 documented as of this encounter
--- OUTSIDE RECORDS SUMMARY | 2024-12-03 09:39 | XMS_ITS | Encounter Summary ---
Author Organization [email or web address] Address [id number] [address] [place] [address] Care Team Providers Care Senior Construction Estimator Name Role Phone Julio Valdivia MD Primary Care Provider [phone] Encounter Details Date Type Department Care Team (Late st Contact Info) Description 02/27/2023 Telephone [facility] [address] [place] [phone] Sundeep Rodriguez MD [address] [place] [address] Social History Tobacco Use Types Packs/Day Years [...] encounter Miscellaneous Notes * Telephone Encounter - Sundeep Rodriguez MD - 02/27/2023 9:34 AM EST Please schedule him a follow-up 1 year - diagnosis BPH documented in this encounter Plan of Treatment Upcoming Encounters Date Type Department Care Team (Late st Contact Info) Description 05/12/2025 1:00 PM EDT Office Visit [facility] [address] [place] [address] [place] [address] Sundeep Rodriguez MD [address] [place] [address] documented as of this encounter Goals Goal [...] documented as of this encounter Care Teams Senior Construction Estimator Relationship Specialty Start Date End Date Julio Valdivia MD [address] [place] [address], 1 [place] [phone] PCP - General Pediatrics 03/14/16 Adrian Torres RN [facility] Nurse - [employer] 07/19/23 documented as of this encounter
--- OUTSIDE RECORDS SUMMARY | 2024-12-03 09:39 | XMS_ITS | Encounter Summary ---
Author Organization [facility] Sys tem Address [id number] [address] [place] [address] Care Team Providers Care Derrick Worker Name Role Phone Julio Valdivia MD Primary Care Provider [phone] Encounter Details Date Type Department Care Team (Late st Contact Info) Description 03/27/2023 Orders Only [facility] [address] [phone] External, Scanning Provider Social History Tobacco Use [...] file Travel History Travel Start Travel End [facility] 11/02/2024 11/19/2024 documented as of this encounter Plan of Treatment Upcoming Encounters Date Type Department Care Team (Late st Contact Info) Description 05/12/2025 1:00 PM EDT Office Visit [facility] [address] [place] [address] [place] [phone] Sundeep Rodriguez MD [facility] [place] [address] documented as of this encounter Goals Goal Patient Goal Type Associated Problems Recent Progress Patient-Stated? Author Home, outpt therapy General Yes Teri Fernandez LSW Note: Evaluation of progress towards goal: Pt's discharge goal is home with and outpt therapy. - J CARLOS KAUR 03/14/19 3:06 PM documented as of this encounter Procedures Procedure Name Priority Date/Time Associated Diagnosis Comments ECG 12-LEAD Routine 03/09/2023 documented in this encounter Results * ECG 12 lead (03/09/2023) 03/09/2023 us Scanning Provider External ECG ORDERABLES Final Result MANUALLY TRANSCRIBED RESULTS documented in this encounter Visit Diagnoses Not on filedocumented in this encounter Additional Health Concerns Assessment Noted Time PHQ-9 Depression Total Score: 0 08/31/19 21 8:36 AM EDT documented as of this encounter Care Teams Derrick Worker Relationship Specialty Start Date End Date Julio Valdivia MD [address] [place] [address], 1 [place] [address] PCP - General Pediatrics 03/14/16 Adrian Torres RN [facility] Nurse - [employer] 07/19/23 documented as of this encounter
--- OUTSIDE RECORDS SUMMARY | 2024-12-03 09:39 | XMS_ITS | Encounter Summary ---
Author Organization [facility] [employer] Sys [employer] Address [id number] [address] [place] [address] Care Team Providers Care Energy Efficient Site Manager Name Role Phone Julio Valdivia MD Primary Care Provider [phone] Reason for Visit * Reason Onset Date Comments return to work note 01/22/2020 Encounter Details Date Type Department Care Team (Late st Contact Info) Description 01/22/2020 [facility] [address] [phone] Kristan Peck RMA return to work note Social History Tobacco Use Types Packs/Day Years [...] file Travel History Travel Start Travel End [facility] 11/02/2024 11/19/2024 documented as of this encounter Miscellaneous Notes * Telephone Encounter - Kristan Peck CMA - 01/22/2020 11:03 AM EST Patient called stating he is in need of a RTW note. He had Covid symptoms started on 01/05/20, positive test on 01/14/20. He states he hasn't had any symptoms since 01/18/20. 14 days from positive test would be 01/28/20. Please advise. Kristan Peck CMA 01/22/20 1113 * Telephone Encounter - Julio Valdivia MD - 01/22/2020 11:03 AM EST I believe it is fine for him to return to work 14 days from his 1st symptom as long as he has been fever free for at least 3 days without medication and his respiratory symptoms are improved. So really he can go back any time now and we can give him a note. * Telephone Encounter - Kristan Peck CMA - 01/22/2020 11:03 AM EST Left message for patient to call the office * Telephone Encounter - Kristan Peck CMA - 01/22/2020 11:03 AM EST DONE documented in this encounter Plan of Treatment Upcoming Encounters Date Type Department Care Team (Late st Contact Info) Description 05/12/2025 1:00 PM EDT Office Visit [facility] [address] [place] [address] [place] [address] Sundeep Rodriguez MD [facility] [place] [address] documented as of this encounter Goals Goal Patient Goal Type Associated Problems Recent Progress Patient-Stated? Author Home, outpt therapy General Yes Teri Fernandez LSW Note: Evaluation of progress towards goal: Pt's discharge goal is home with and outpt therapy. - J CARLOS KAUR 03/14/19 3:06 PM documented as of this encounter Visit Diagnoses Not on filedocumented in this encounter Care Teams Energy Efficient Site Manager Relationship Specialty Start Date End Date Julio Valdivia MD [address] [place] [address], [address] [place] [phone] PCP - General Pediatrics 03/14/16 Adrian Torres RN [facility] Nurse - [employer] 07/19/23 documented as of this encounter
--- OUTSIDE RECORDS SUMMARY | 2024-12-03 09:39 | XMS_ITS | Clinical Summary ---
Author Organization [facility] Address [address] [place] [address] Care Team Providers Care Fuel Cell Engineer Name Role Phone Julio Valdivia MD Primary Care Provider [phone] Allergies No known active allergies Medications fluticasone (Flonase) 50 MCG/ACT nasal sprayIndication s:Chronic maxillary sinusitis Administer 2 sprays into each nostril Daily Shake gently. Before first use, prime pump. After use, clean tip and replace cap. 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 Some mild improvement with tamsulosin, no change with caffeine decreased consumption Improved with increase tamsulosin to b.i.d.. PVR improved. He is satisfied currently. Plan recheck 12 motnhs 01/25: Tamsulosin no longer working. No improvement [...] to continue Uroxatral. 04/29/24: stable using uroxatral Reactive airways dysfunction syndrome 07/14/2015 Resolved Problems Problem Noted Date Diagnosed Date Resolved Date Chronic ethmoidal sinusitis 07/21/2022 07/21/2022 Chronic maxillary sinusitis 07/21/2022 07/21/2022 Neuritis of left foot 07/21/20222022 Periostitis of ankle and radha t without osteomyelitis 07/21/2022 07/21/2022 Screening for prostate cancer 02/04/2020 12/18/2022 Overview (12/18/2022): 02/04/20: PSA 2.03 Knee pain 01/12/2020 12/18/2022 Nocturia 12/10/2019 12/18/2022 Overview (12/18/2022): 12/10/19: Nocturia is quite bothersome to him [...] diagnostic or treatment options at this time. Last Assessment & Plan: He would like to follow-up as needed. Erectile dysfunction 12/04/2017 023 Overview (12/18/2022): ED - successfully treated with sildenafil. Prescription for generic provided with recommendation to separate from tamsulosin by 4 hr Bilateral primary osteoarthritis of knee 05/10/2017 12/18/2022 Trochanteric bursitis of left hip 05/10/2017 12/18/2022 Hematospermia 05/01/2017 12/18/2022 Overview (12/18/2022): One episode of hematospermia 2016. This is benign. PSA normal. Encounters Date Type Department Care Team Description 10/03/2024 Telephone [facility] [address] [place] [address] Maria Eugenia Carter MD wrong pharmacy 10/01/2024 11:10 AM EDT Office Visit [facility] [address] [place] [address] Maria Eugenia Carter MD Chronic maxillary sinusitis (Primary Dx); Atypical face pain 10/01/2024 Bamboo flowsheet [facility] [address] [place] [address] Maria Eugenia Carter MD 10/01/2024 Travel from Last 3 Months Immunizations Immunization Administration Dates Next Due Zoster, Recombinant 03/03/2020,12/16/2019 Family History Medical History Relation Name Comments Cancer Father Idris Fierro Cancer Mother [facility] Glaucoma Mother [facility] Brain cancer Sibling Relation Name Status Comments Father Idris Fierro Mother Izzy Fierro Sibling Social History Tobacco Use Types Packs/Day Years Used Date Smoking Tobacco: Former Cigarettes 2 32 0 03/05/1969 - 03/05/2001 Smokeless Tobacco: Never Tobacco Cessation:Counseling Given: Not Answered Comments:Quit smoking 20+ years ago Alcohol Use Standard Drinks/Week Comments Not Currently 0 (1 standard drink = 0.6 oz pur e alcohol) Caffeine: 2-3 cups/day Sex and Gender Information Value Date Recorded Sex Assigned at Not on file Legal Sex Male 7:14 PM EDT Gender Identity Not on file Sexual Orientation Not on file Last Filed Vital Signs Vital Sign Reading Time Taken Comments Blood Pressure 115/77 10/01/2024 11:08 AM EDT Pulse 89 10/01/2024 11:08 AM EDT Temperature - - Respiratory Rate - - Oxygen Saturation - - Inhaled Oxygen Concentration - - Weight 114 kg (251 lb) 10/01/2024 11:08 AM EDT Height 188 cm (6' 2 ) 10/01/2024 11:08 AM EDT Body Mass Index 32.23 10/01/2024 11:08 AM EDT Plan of Treatment Health Maintenance Due Date Last Done Comments CT Colonography 1955 FIT-DNA 1955 FIT 1955 FOBT 1955 Sigmoidoscopy 1955 Pneumococcal Vaccine: 65+ Ye ars (1 of 1 - PCV) 05/04/2005 Influenza Vaccine (#1) 2024 4, 01/26/2023, 12/19/2021, Additional history exists Colonoscopy 07/23/2030 07/23/2020 Colorectal Cancer Screening 07/23/2030 Insurance [employer] Care Teams Fuel Cell Engineer Relationship Specialty Start Date End Date Julio Valdivia MD [address] [place] [address], [address] [place] [address] PCP - General Family Medicine 09/25/24
--- OUTSIDE RECORDS SUMMARY | 2024-12-03 09:39 | XMS_ITS | Encounter Summary ---
Author Organization [facility] [employer] [facility] Address [facility] [place][id number] [address] [place] [address] Care Team Providers Care Anti Tank Missileman Name Role Phone Julio Valdivia MD Primary Care Provider [phone] Encounter Details Date Type Department Care Team (Late st Contact Info) Description 12/02/2024 Telephone [facility] [address] [place] [address] [address] [place] [phone] Julio Valdivia MD [address] [place] [address], [address] [place], [place] [phone] Social History Tobacco Use Types Packs/Day Years [...] encounter Miscellaneous Notes * Telephone Encounter - Melanie Padilla - 12/02/2024 1:38 PM EDT Patient called, he has trouble breathing when he is laying down. His coughing is still nagging and he is out of medicine. Please advise * Telephone Encounter - Julio Valdivia MD - 12/02/2024 1:38 PM EDT I'll try repeating the prednisone * Telephone Encounter - Melanie Padilla - 12/02/2024 1:38 PM EDT Bill called, let him know that Dr Valdivia sent in for another round of prednisone. documented in this encounter Plan of Treatment Upcoming Encounters Date Type Department Care Team (Late st Contact Info) Description 05/12/2025 1:00 PM EDT Office Visit [facility] [address] [place] [address] [place] [address] Sundeep Rodriguez MD [facility] [place], [place] [phone] documented as of this encounter Goals Goal [...] documented as of this encounter Care Teams Anti Tank Missileman Relationship Specialty Start Date End Date Julio Valdivia MD [address] [place] [address], [address] [place], [place] [phone] PCP - General Pediatrics 03/14/16 Adrian Torres RN [facility] Nurse - [employer] 07/19/23 documented as of this encounter
--- OUTSIDE RECORDS SUMMARY | 2024-12-03 09:39 | XMS_ITS | Clinical Summary ---
Author Organization [facility] Address [address] [place] [address] Care Team Providers Care Housecleaner Floor Name Role Phone Unavailable Primary Care Provider Unavailabl e Encounters Date Type Department Care Team Description 12/01/2024 Telephone Pulmonary Medicine [address] [address] Sánchez Becker WELCOME AND APPONTMENT REMINDER LETTERS (Sent [employer]) 11/24/2024 Orders Only Pulmonary Medicine [address] [address] Precious Gaston RN Chronic beryllium disease (HCC) (Primary Dx); Interstitial pulmonary disease (HCC) from Last 3 Months Social History Tobacco Use Types Packs/Day Years Used Date Smoking Tobacco: Never Assessed Sex and Gender Information Value Date Recorded Sex Assigned at Male 04/01/2024 9:04 AM EST Legal Sex Male 9:24 AM EST Gender Identity Male 04/01/2024 9:04 AM EST Sexual Orientation Not on file Plan of Treatment Upcoming Encounters Date Type Department Care Team (Late st Contact Info) Description 04/13/2025 10:00 AM EST Appointment Radiology [address] [address] Chronic beryllium disease ( 04/13/2025 11:00 AM EST Procedure Pulmonary Medicine [address] [address] Marimar Myers Fct Lab Main [address] [address] Chronic beryllium disease ( 04/13/2025 11:15 AM EST Procedure Pulmonary Medicine [address] [address] Marimar Myers Fct Lab Main 6 [facility] [address] [place] [address] Chronic beryllium disease ( 04/13/2025 12:00 PM EST Office Visit Pulmonary Medicine [address] [place] [address] Anila Higgins MD [address] [place] [address] Chronic beryllium disease ( Health Maintenance Due Date Last Done Comments Anxiety Screening 05/04/1973 Depression Screening 05/04/1973 Hepatitis C Screening 05/04/1973 DTaP,Tdap,Td Vaccine (1 - Tdap) 05/04/1974 Lipid Screening 05/04/1990 CT Colonography 05/04/2000 Cologuard (FIT-DNA) 05/04/2000 Fecal Occult Blood 05/04/2000 Sigmoidoscopy 05/04/2000 Pneumococcal Vaccine: 50+ (1 of 1 - PCV) 05/04/2005 Colonoscopy 07/23/2021 07/23/2020 Colorectal Cancer Screening 07/23/2021 Advance Directive Discussion 03/05/2024 Influenza Vaccine (#1) 2024 , 11/27/2023, 01/26/2023, Additional history exists Diabetes Screening 09/26/2025 09/26/2022, 1 , 08/31/2020, Additional history exists RSV Vaccine (1 - 1-dose 75+ series) 05/04/2030 Shingrix Vaccine Completed 03/03/2020, 12/16/2019 [place] [address]
--- NOTE | 2024-12-03 09:45 | XR_ITS ---
The [place] [id number] Patient Name: MARILIN BARTH MRN: [id number] date: 1955 Sex: M Assigned Patient Location: ER Current Patient Location: Accession/Order Number: [id number] Exam Date: 12/03/2024 09:54 Report Date: 12/03/2024 10:18 At the request of: PRAFUL DAO MD Procedure: XR chest 1V PORTABLE AP ERECT CHEST 0954 hours CLINICAL HISTORY: Shortness of breath for the past couple weeks. History of tobacco use. COMPARISON: Chest x-ray and CT 01/11/2022 The heart is within normal limits. There is no vascular congestion. The lungs show mild hyperinflation. No consolidation is seen. There is a left upper lobe calcified granuloma. There is no effusion or pneumothorax. The osseous structures are intact. XR/XR chest 1V IMPRESSION: NO ACUTE FINDINGS Impression dictated by: Nathaly Lake M.D. 12/03/2024 10:18 AM Dictation Location: [place] [address] Electronically authenticated by: [id number] Y Date: 12/03/2024 10:18
--- NOTE | 2024-12-03 09:45 | ECG_ITS ---
The [facility] Test Date: 2024-12-03 Pat Name: MARILIN BARTH Department: Room: - Gender: Male Fuse Coiler: : 1955 Requested By: [id number] Order Number: [id number] Reading MD: Sami Gunter Measurements Intervals [place] Rate: 97 P: 47 CO: 172 QRS: -87 QRSD: 108 T: 72 QT: 358 QTc: 412 Interpretive Statements 1100 Sinus rhythm 2440 Incomplete right bundle branch block 3434 cannot rule out prior Septal myocardial infarction LEFT ANTERIOR FASCICULAR BLOCK 9150 abnormal ECG no significant change Electronically Signed On 12-03-2024 13:23:44 EDT by Sami Gunter
[2024-12-03] MEDS: IPRATROPIUM/ALBUTEROL SULFATE 3 ML AMPUL.NEB IH ×2 (09:59→11:27)
[2024-12-03] MEDS: METHYLPREDNISOLONE SOD SUCC PF 125 MG/2 ML VIAL IVP (10:01)
[2024-12-03 10:08] LABS: Hematocrit 50.1 % (42.0-54.0); Hemoglobin 17.0 g/dL (14.0-18.0); Immature Granulocytes Abs Auto 0.03 10^3/uL (0.00-0.03); Immature Granulocytes Pct Auto 0.4 % (0.0-0.5); Lymphocytes Absolute Auto 1.3 10^3/uL (1.2-3.8); Mean Corpuscular HGB Conc 33.9 g/dL (29.9-35.2); Mean Corpuscular Hemoglobin 30.7 pg (25.9-34.0); Mean Corpuscular Volume 90.4 fL (80.0-94.0); Platelet Count 240 10^3/uL (150-450); Red Blood Count 5.54 10^6/uL (4.70-6.10); White Blood Count 8.2 10^3/uL (4.0-11.0)
[2024-12-03 10:25] LABS: SARS-CoV-2 Ag NEGATIVE (NEGATIVE)
[2024-12-03 10:27] LABS: INR 0.98; Prothrombin Time 10.4 sec (9.0-11.6)
[2024-12-03 10:36] LABS: Alanine Aminotransferase 27 U/L (16-63); Albumin Globulin Ratio 1.3; Albumin Level 4.2 g/dL (3.4-5.0); Alkaline Phosphatase 76 U/L (46-116); Anion Gap 14.9; Aspartate Amino Transferase 18 U/L (15-37); Blood Urea Nitrogen 15.0 mg/dL (7.0-18.0); Calcium 9.4 mg/dL (8.5-10.1); Carbon Dioxide 25.6 mmol/L (21.0-32.0); Chloride 105 mmol/L (98-107); Estimated GFR (African America >60 (>=60 mL/min/1.73m^2); Estimated GFR (Non-African Ame >60 (>=60 mL/min/1.73m^2); Globulin 3.3 g/dL; Glucose 110 mg/dL (74-106); Potassium 4.5 mmol/L (3.5-5.1); Sodium 141 mmol/L (136-145); Total Protein 7.5 g/dL (6.4-8.2)
--- NOTE | 2024-12-03 11:25 | ED_ITS ---
HPI - SOB/Dyspnea General Chief Complaint: Shortness of Breath/Dyspnea Stated Complaint: SOB Time Seen by Provider: 12/03/24 09:44 Source: patient Mode of arrival: Wheelchair History of Present Illness HPI Narrative: The patient have a history of COPD is coming to us after he has been having symptoms for the last 2 weeks apparently just came from a cruise. In the last few days of the cruise he actually had cough and wheezing, patient mentioned that multiple people in the cruise actually had symptoms The patient have no runny nose and have a cough that is mildly productive Patient has been using an inhaler with no improvement he was provided with prednisone almost to finish the course 3 days ago as well as doxycycline The patient denies any other concerns He tried reaching out to his primary care for further evaluation but he was short of breath and came here for evaluation Related Data Home Medications ?Medication ?Instructions ?Recorded ?Confirmed alfuzosin 10 mg tablet,extended mg PO 12/03/24 release 24 hr fluticasone propionate 50 intranasal 12/03/24 mcg/actuation nasal spray,suspension Previous Rx's ?Medication ?Instructions ?Recorded albuterol sulfate 90 mcg/actuation 2 inh inhalation QI D PRN shortness 12/03/24 aerosol inhaler of breath or wheezing #8.5 g sofia benzonatate 200 mg capsule 200 mg PO TID PRN cough #20 caps 12/03/24 prednisone 50 mg tablet 50 mg PO DAILY 5 days #5 tab s 12/03/24 Allergies Allergy/AdvReac Type Severity Reaction Status Date / Time No Known Drug Allergies Allergy Verified 12/03/24 09:35 Review of Systems ROS Status of ROS 10 or more systems reviewed and unremark able except as noted in history and below PFSH PFSH Social History Little interest or pleasure in doing things: not at all Feeling down, depressed, or hopeless: not at all Exam Narrative Exam Narrative: Nurses notes and vital signs reviewed and patient is not hypoxic. General: Well-appearing and in no apparent distress. Skin: Warm, dry, no pallor noted. No rash. Head: Normocephalic, atraumatic. Cardiovascular: Regular Rate and Rhythm without murmur, gallop or rub. Respiratory: No accessory muscle use or respiratory distress. The patient is having bilateral expiratory lung wheezes in both lung landrum. And distant breathing sounds GI: Abdomen is soft, non-distended. Normal bowel sounds. No masses appreciated. No tenderness to palpation. No rebound, guarding, or rigidity noted. Neurological: A&O x4. No cranial nerve dysfunction observed. No truncal ataxia. Moves all extremities. Sensation intact. Psychiatric: Cooperative and interactive. Normal mood and affect. Constitutional Vital Signs, click to edit/add: Last Vital Signs Temp 98.0 F 12/03/24 09:39 Pulse 85 12/03/24 11:27 Resp 17 12/03/24 11:20 BP 108/68 12/03/24 11:00 Pulse Ox 93 L 12/03/24 11:27 O2 Del Method Room Air 12/03/24 11:27 Course Vital Signs Vital signs: Vital Signs Temperature 98.0 F 12/03/24 09:39 Pulse Rate 97 H 12/03/24 09:39 Respiratory Rate 20 12/03/24 09:39 Blood Pressure 108/79 12/03/24 09:39 Pulse Oximetry 95 12/03/24 09:39 Oxygen Delivery Method Room Air 12/03/24 09:39 Temperature 98.0 F 12/03/24 09:39 Pulse Rate 85 12/03/24 11:27 Respiratory Rate 17 12/03/24 11:20 Blood Pressure 108/68 12/03/24 11:00 Pulse Oximetry 93 L 12/03/24 11:27 Oxygen Delivery Method Room Air 12/03/24 11:27 MDM - SOB/Dyspnea MDM Narrative Medical decision making narrative: The patient EKG showing sinus rhythm with a heart rate of [address] elevation or depression Chest x-ray showed no acute pathology CBC and chemistry showed no acute pathology with a negative D-dimer and troponin The patient initially was planned to be admitted for observation but he mentioned that he is feeling much better after initial treatment in the ER, he was initially taking only prednisone 20 mg and that is not adequate the patient was started on 50 mg prednisone for the next 5 days, albuterol inhaler refilled and sincerity was covered with doxycycline no need for further antibiotic Patient was provided with Tessalon Perles for cough control and stopping the Mucinex The patient is to follow up with primary care physician in next 2-3 days or to return to the emergency department should any of the signs or symptoms worsen or new symptoms develop. The patient agrees with the following Diagnosis and Treatment plan and the patient will be discharged home. Lab Data Labs: Lab Results 12/03/24 Range/Units 09:45 WBC 8.2 (4.0-11.0) 10^3/uL RBC 5.54 (4.70-6.10) 10^6/uL Hgb 17.0 (14.0-18.0) g/dL Hct 50.1 (42.0-54.0) % MCV 90.4 (80.0-94.0) fL MCH 30.7 (25.9-34.0) pg MCHC 33.9 (29.9-35.2) g/dL RDW 13.1 (11.0-15.0) % Plt Count 240 (150-450) 10^3/uL MPV 9.9 (9.5-13.5) fL Neut % (Auto) 71.7 (43.0-75.0) % Lymph % (Auto) 15.7 L (20.5-60.0) % [place] % (Auto) 6.4 (1.7-12.0) % Eos % (Auto) 5.7 (0.9-7.0) % Baso % (Auto) 0.1 L (0.2-2.0) % Neut # (Auto) 5.9 (1.4-6.5) 10^3/uL Lymph # (Auto) 1.3 (1.2-3.8) 10^3/uL [place] # (Auto) 0.5 (0.3-0.8) 10^3/uL Eos # (Auto) 0.5 (0.0-0.7) 10^3/uL Baso # (Auto) 0.0 (0.0-0.1) 10^3/uL Abs Immat Gran (auto) 0.03 (0.00-0.03) 10^3/uL Imm/Tot Granulo (auto) 0.4 (0.0-0.5) % PT 10.4 (9.0-11.6) sec INR 0.98 D-Dimer 0.22 (<=0.59) mg/L FEU Sodium 141 (136-145) mmol/L Potassium 4.5 (3.5-5.1) mmol/L Chloride 105 (98-107) mmol/L Carbon Dioxide 25.6 (21.0-32.0) mmol/L Anion Gap 14.9 BUN 15.0 (7.0-18.0) mg/dL Creatinine 1.01 (0.70-1.30) mg/dL Est GFR ( Amer) >60 (>=60 mL/min/1.73m^2) Est GFR (Non-Af Amer) >60 (>=60 mL/min/1.73m^2) BUN/Creatinine Ratio 14.9 Glucose 110 H (74-106) mg/dL Calcium 9.4 (8.5-10.1) mg/dL Total Bilirubin 0.7 (0.2-1.0) mg/dL AST 18 (15-37) U/L ALT 27 (16-63) U/L Alkaline Phosphatase 76 (46-116) U/L Troponin I High Sens 4.0 (4.0-76.1) pg/mL Total Protein 7.5 (6.4-8.2) g/dL Albumin 4.2 (3.4-5.0) g/dL Globulin 3.3 g/dL Albumin/Globulin Ratio 1.3 Influenza Type A Ag Negative Influenza Type B Ag Negative SARS-CoV-2 Ag (CV2AG) Negative (NEGATIVE) Discharge Plan Discharge Chief Complaint: Shortness of Breath/Dyspnea Clinical Impression: COPD with acute exacerbation Patient Disposition: Home, Self-Care Time of Disposition Decision: 11:22 Condition: Good Prescriptions / Home Meds: New prednisone 50 mg tablet 50 mg PO DAILY 5 Days Qty: 5 0RF albuterol sulfate 90 mcg/actuation HFA aerosol inhaler 2 inh inhalation QID PRN (Reason: shortness of breath or wheezing) Qty: 8.5 0RF benzonatate 200 mg capsule 200 mg PO TID PRN (Reason: cough) Qty: 20 0RF No Action fluticasone propionate 50 mcg/actuation spray,suspension INTRANASAL alfuzosin 10 mg tablet extended release 24 hr PO Print Language: Turkmen Instructions: COPD (Chronic Obstructive Pulmonary Disease) (DC) Additional Instructions: Please make sure that you use your rescue inhaler 4 times a day for the next 3 days on the clock and also to use a humidifier at the bedside The patient is to follow up with primary care physician in next 2-3 days or to return to the emergency department should any of the signs or symptoms worsen or new symptoms develop. The patient agrees with the following Diagnosis and Treatment plan and the patient will be discharged home. Referrals: Physician,Non-Staff, MD [Primary Care Provider] - 1 week Discharge Date/Time: 12/03/24 11:45
== END 2024-12-03 11:45 | disposition home or self-care (01) ==
PROVIDERS: Emergency Provider Emergency Medicine
DX: J44.1 Chronic obstructive pulmonary disease with (acute) exacerbation (principal); R06.02 Shortness of breath
CPT/HCPCS: 36415; 71045; 80053; 84484; 85025; 85378; 85610; 87040; 87804; 87811; 93005; 94640; 96374; 99285; J2919

== ENCOUNTER 2024-12-12 09:01 | Emergency (ER) | payer MEDICARE, OTHER, SELFPAY ==
[2024-12-12] VITALS (17 sets, daily range): BP systolic 120–150; BP diastolic 84–110; PULSE 65–90; TEMP 36.8; O2SAT 91–98; BMI 31.5
--- NOTE | 2024-12-12 09:17 | XR_ITS ---
The [address] [address] Patient Name: MARILIN BARTH MRN: [id number] date: 1955 Sex: M Assigned Patient Location: ER Current Patient Location: ER Accession/Order Number: [id number] Exam Date: 12/12/2024 09:30 Report Date: 12/12/2024 09:39 At the request of: SARY BRANDON MD Procedure: XR chest 1V XR chest 1V 12/12/2024 9:33 AM SIGNS AND SYMPTOMS: ^SOB ^Y PROTOCOL: Frontal radiograph of the chest COMPARISON: 12/03/2024 FINDINGS: The trachea is midline. The heart and mediastinal structures are within normal limits. There is a calcified granuloma in the left mid chest. There is scarring in the lung bases. The lung parenchyma is clear, otherwise. The bony thorax is intact. Degenerative changes are noted in the thoracic spine and shoulders. XR/XR chest 1V IMPRESSION: No acute cardiopulmonary pathology. Chronic findings are noted as above. Impression dictated by: Carl De Jesus M.D. 12/12/2024 9:39 AM Dictation Location: [place] [address] Electronically authenticated by: [id number] Y Date: 12/12/2024 09:39
--- NOTE | 2024-12-12 09:17 | ECG_ITS ---
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
--- NOTE | 2024-12-12 09:18 | ED.GENADUL1 ---
HPI HPI - General Adult General Chief complaint: Shortness of Breath/Dyspnea Stated complaint: SOB CHEST PAIN Time Seen by Provider: 12/12/24 09:09 Source: patient Mode of arrival: walk-in Limitations: no limitations History of Present Illness HPI narrative: 69-year-old male presents to the emergency department for shortness of breath. He has had this since he was on a cruise last month. He saw his family doctor and then he was in this emergency department. In this emergency department he had a chest x-ray and blood work drawn and no specific findings were found. He has no history of PE or DVT. He is not complaining to me of chest pain and he has not had a fever. He gets much more short of breath with exertion. At rest he states he is not short of breath. He has a history of occupational berylliosis. Related Data Home Medications ?Medication ?Instructions ?Recorded ?Confirmed alfuzosin 10 mg tablet,extended 10 mg PO DAILY 12/03/24 12/12/24 release 24 hr fluticasone propionate 50 2 spray intranasal Q12H 12/03/24 12/12/24 mcg/actuation nasal spray,suspension Previous Rx's ?Medication ?Instructions ?Recorded albuterol sulfate 90 mcg/actuation 2 inh inhalation QID PRN shortness 12/03/24 aerosol inhaler of breath or wheezing #8.5 grams prednisone 10 mg tablet See Rx Instructions .Route 12/12/24 .COMPLEX #30 tabs Allergies Allergy/AdvReac Type Severity Reaction Status Date / Time No Known Drug Allergies Allergy Verified 12/03/24 09:35 Review of Systems ROS Narrative A ten point review of systems is negative except as noted above. PFSH PFSH Social History Little interest or pleasure in doing things: not at all Feeling down, depressed, or hopeless: not at all Exam Narrative Exam Narrative: Nurses note and vital signs reviewed and patient is not hypoxic. General:The patient appears in no apparent distress.he coughs occasionally. Skin:Warm, dry, no pallor noted.There is no rash noted. Head:Normocephalic, atraumatic Eye: Normal conjunctiva, no drainage Ears, Nose, Mouth, and Throat: oral mucosa is moist. Nares patent. Cardiovascular:Regular Rate and Rhythm Respiratory: Breath sounds are equal bilaterally Back:non-tender GI: Soft and nontender Musculoskeletal: The patient has no evidence of calf tenderness, no pitting edema, symmetrical pulses noted bilaterally Neurological:A&O, normal speech Psychiatric:Cooperative Constitutional Vital Signs, click to edit/add: Last Vital Signs Temp 98.2 F 12/12/24 09:05 Pulse 77 12/12/24 09:56 Resp 20 12/12/24 09:56 BP 130/84 12/12/24 09:05 Pulse Ox 93 L 12/12/24 09:56 O2 Del Method Room Air 12/12/24 09:56 Course Vital Signs Vital signs: Vital Signs Temperature 98.2 F 12/12/24 09:05 Pulse Rate 90 12/12/24 09:05 Respiratory Rate 20 12/12/24 09:05 Blood Pressure 130/84 12/12/24 09:05 Pulse Oximetry 98 12/12/24 09:05 Oxygen Delivery Method Room Air 12/12/24 09:05 Temperature 98.2 F 12/12/24 09:05 Pulse Rate 77 12/12/24 09:56 Respiratory Rate 20 12/12/24 09:56 Blood Pressure 130/84 12/12/24 09:05 Pulse Oximetry 93 L 12/12/24 09:56 Oxygen Delivery Method Room Air 12/12/24 09:56 Medical Decision Making MDM Narrative Medical decision making narrative: His workup here is negative including CTA chest. No evidence of PE. He was given aerosol treatment and feels improved and is discharged home with a prescription for prednisone. Follow-up with PCP. Treatment diagnosis and follow-up were discussed with the patient. Differential Diagnosis Differential Diagnosis: PE, pneumonia, COPD, anxiety Lab Data Lab results reviewed: Yes I reviewed the patient's lab results Labs: Lab Results 12/12/24 Range/Units 09:20 WBC 7.5 (4.0-11.0) 10^3/uL RBC 5.29 (4.70-6.10) 10^6/uL Hgb 16.1 (14.0-18.0) g/dL Hct 47.7 (42.0-54.0) % MCV 90.2 (80.0-94.0) fL MCH 30.4 (25.9-34.0) pg MCHC 33.8 (29.9-35.2) g/dL RDW 13.2 (11.0-15.0) % Plt Count 196 (150-450) 10^3/uL MPV 9.8 (9.5-13.5) fL Neut % (Auto) 70.2 (43.0-75.0) % Lymph % (Auto) 16.5 L (20.5-60.0) % [place] % (Auto) 8.1 (1.7-12.0) % Eos % (Auto) 4.4 (0.9-7.0) % Baso % (Auto) 0.1 L (0.2-2.0) % Neut # (Auto) 5.3 (1.4-6.5) 10^3/uL Lymph # (Auto) 1.2 (1.2-3.8) 10^3/uL [place] # (Auto) 0.6 (0.3-0.8) 10^3/uL Eos # (Auto) 0.3 (0.0-0.7) 10^3/uL Baso # (Auto) 0.0 (0.0-0.1) 10^3/uL Abs Immat Gran (auto) 0.05 H (0.00-0.03) 10^3/uL Imm/Tot Granulo (auto) 0.7 H (0.0-0.5) % Sodium 139 (136-145) mmol/L Potassium 4.3 (3.5-5.1) mmol/L Chloride 104 (98-107) mmol/L Carbon Dioxide 26.2 (21.0-32.0) mmol/L Anion Gap 13.1 BUN 22.0 H (7.0-18.0) mg/dL Creatinine 1.02 (0.70-1.30) mg/dL Est GFR ( Amer) >60 (>=60 mL/min/1.73m^2) Est GFR (Non-Af Amer) >60 (>=60 mL/min/1.73m^2) BUN/Creatinine Ratio 21.6 Glucose 97 (74-106) mg/dL Calcium 9.1 (8.5-10.1) mg/dL Troponin I High Sens 6.0 (4.0-76.1) pg/mL Imaging Data Chest x-ray: Radiologist's impression: ITS Impressions Chest X-Ray 12/12/24 09:17 IMPRESSION: No acute cardiopulmonary pathology. Chronic findings are noted as above. Impression dictated by: Carl De Jesus M.D. 12/12/2024 9:39 AM Dictation Location: [place] [address] Electronically authenticated by: [id number] Y Date: 12/12/2024 09:39 Chest CTA 12/12/24 09:48 IMPRESSION: NO CT EVIDENCE OF PULMONARY EMBOLISM. GRANULOMATOUS CHANGES AND SIMILAR NODULARITY. MINIMAL ATELECTASIS OR SCARRING. NO OTHER ACUTE FINDINGS. Impression dictated by: Nathaly Lake M.D. 12/12/2024 10:49 AM Dictation Location: [place] [address] Electronically authenticated by: [id number] Y Date: 12/12/2024 10:49 ECG Data Attestation: I personally reviewed and interpreted this ECG as follows: (EKG on my interpretation shows sinus rhythm with rate of 90 and no acute change) Discharge Plan Discharge Chief Complaint: Shortness of Breath/Dyspnea Clinical Impression: COPD with acute exacerbation Patient Disposition: Home, Self-Care Time of Disposition Decision: 11:00 Condition: Good Mode of Transportation: Private Vehicle Prescriptions / Home Meds: New prednisone 10 mg tablet See Rx Instructions .ROUTE .COMPLEX Qty: 30 0RF Rx Instructions: 4 by mouth daily for three days then 3 by mouth daily for three days then 2 by mouth daily for three days then 1 by mouth daily for three days No Action fluticasone propionate 50 mcg/actuation spray,suspension 2 spray INTRANASAL Q12H alfuzosin 10 mg tablet extended release 24 hr 10 mg PO DAILY albuterol sulfate 90 mcg/actuation HFA aerosol inhaler 2 inh inhalation QID PRN (Reason: shortness of breath or wheezing) Qty: 8.5 0RF Print Language: Vietnamese Instructions: COPD (Chronic Obstructive Pulmonary Disease) (ED) Referrals: Physician,Non-Staff, MD [Primary Care Provider] - 1 week
[2024-12-12 09:22] LABS: Hematocrit 47.7 % (42.0-54.0); Hemoglobin 16.1 g/dL (14.0-18.0); Immature Granulocytes Abs Auto 0.05 10^3/uL (0.00-0.03); Immature Granulocytes Pct Auto 0.7 % (0.0-0.5); Lymphocytes Absolute Auto 1.2 10^3/uL (1.2-3.8); Mean Corpuscular HGB Conc 33.8 g/dL (29.9-35.2); Mean Corpuscular Hemoglobin 30.4 pg (25.9-34.0); Mean Corpuscular Volume 90.2 fL (80.0-94.0); Platelet Count 196 10^3/uL (150-450); Red Blood Count 5.29 10^6/uL (4.70-6.10); White Blood Count 7.5 10^3/uL (4.0-11.0)
--- NOTE | 2024-12-12 09:48 | CT_ITS ---
The [address] [address] Patient Name: MARILIN BARTH MRN: [id number] date: 1955 Sex: M Assigned Patient Location: ER Current Patient Location: Accession/Order Number: [id number] Exam Date: 12/12/2024 10:14 Report Date: 12/12/2024 10:49 At the request of: SARY BRANDON MD Procedure: CT angio chest CT PULMONARY ANGIOGRAM WITH CONTRAST CLINICAL HISTORY: Short of breath and cough after travel, hx of berylliosis COMPARISON: 01/11/2022 TECHNIQUE: Spiral images were obtained through the chest following intravenous administration of 100 mL of Omnipaque 350. Images were reviewed using both narrow and wide window settings. Sagittal, coronal and 3 D volume-rendered reconstructions were performed and reviewed. This CT exam was performed using one or more following dose reduction techniques: Automated exposure control, adjustment of the mA and/or kV according to patient size, or use of iterative reconstruction technique. FINDINGS: The heart is not enlarged. There is no pericardial effusion. No aortic aneurysm is seen. Minor plaque is present at the aortic arch. The contrast bolus is not optimal for evaluation for dissection. There is adequate opacification of the pulmonary arteries. No emboli are identified. Calcified left hilar granulomas are again seen. Similar small noncalcified mediastinal and hilar lymph nodes are present. There is continued apparent esophageal wall thickening. Endplate spurring is visualized at the spine. Minimal atelectasis or scarring is noted. Similar pulmonary nodularity is again seen including calcified granulomas. There is no developing consolidation, pleural effusion or pneumothorax. Limited cuts through the upper abdomen show no contributory abnormality. CT/CT angio chest IMPRESSION: NO CT EVIDENCE OF PULMONARY EMBOLISM. GRANULOMATOUS CHANGES AND SIMILAR NODULARITY. MINIMAL ATELECTASIS OR SCARRING. NO OTHER ACUTE FINDINGS. Impression dictated by: Nathaly Lake M.D. 12/12/2024 10:49 AM Dictation Location: [place] [address] Electronically authenticated by: [id number] Y Date: 12/12/2024 10:49
[2024-12-12] MEDS: ALBUTEROL SULFATE 2.5 MG/3 ML VIAL NEB IH (09:56)
[2024-12-12 10:39] LABS: Anion Gap 13.1; Blood Urea Nitrogen 22.0 mg/dL (7.0-18.0); Calcium 9.1 mg/dL (8.5-10.1); Carbon Dioxide 26.2 mmol/L (21.0-32.0); Chloride 104 mmol/L (98-107); Estimated GFR (African America >60 (>=60 mL/min/1.73m^2); Estimated GFR (Non-African Ame >60 (>=60 mL/min/1.73m^2); Glucose 97 mg/dL (74-106); Potassium 4.3 mmol/L (3.5-5.1); Sodium 139 mmol/L (136-145)
[2024-12-12] MEDS: KETOROLAC TROMETHAMINE 30 MG/ML VIAL IVP (11:20)
== END 2024-12-12 11:22 | disposition home or self-care (01) ==
PROVIDERS: Emergency Provider Emergency Medicine
DX: J44.1 Chronic obstructive pulmonary disease with (acute) exacerbation (principal); Z87.09 Personal history of other diseases of the respiratory system; R06.02 Shortness of breath
CPT/HCPCS: 36415; 71045; 71275; 80048; 84484; 85025; 93005; 94640; 96374; 99285; J1885; Q9967

== ENCOUNTER 2025-01-23 09:01 | Emergency (ER) | payer MEDICARE, OTHER, SELFPAY ==
[2025-01-23] VITALS (19 sets, daily range): BP systolic 96–131; BP diastolic 64–92; PULSE 79–94; O2SAT 90–96; BMI 33.9
--- NOTE | 2025-01-23 09:25 | ECG_ITS ---
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 Measurements Intervals [place] Rate: 90 P: 54 SD: 168 QRS: 256 QRSD: 116 T: 73 QT: 374 QTc: 422 Interpretive Statements 1100 Sinus rhythm 3434 Septal myocardial infarction, age undetermined 7100 Abnormal right axis deviation 9150 abnormal ECG Compared to ECG 12/12/2024 09:46:05 Right-axis deviation now present Myocardial infarct finding still present Electronically Signed On 01-23-2025 17:42:50 EST by ELIZABETH SPARKS M.D.
--- NOTE | 2025-01-23 09:25 | XR_ITS ---
The [place] [id number] Patient Name: MARILIN BARTH MRN: [id number] date: 1955 Sex: M Assigned Patient Location: ER Current Patient Location: ER Accession/Order Number: [id number] Exam Date: 01/23/2025 09:50 Report Date: 01/23/2025 10:07 At the request of: SARY BRANDON MD Procedure: XR chest 1V PORTABLE AP ERECT CHEST 0931 hours CLINICAL HISTORY: Shortness of breath, nausea and vomiting COMPARISON: 12/12/2024 The heart is within normal limits. There is no vascular congestion. The lungs, as visualized, are clear. A calcified granuloma is again visualized on the left. There is no effusion or pneumothorax. The osseous structures are intact. There is mild endplate spurring XR/XR chest 1V IMPRESSION: NO ACUTE FINDINGS Impression dictated by: Nathaly Lake M.D. 01/23/2025 10:07 AM Dictation Location: [place] [address] Electronically authenticated by: [id number] Y Date: 01/23/2025 10:07
--- NOTE | 2025-01-23 09:29 | ED_ITS ---
HPI HPI - General Adult General Chief complaint: Shortness of Breath/Dyspnea Stated complaint: SOB COUGHING VOMITING Time Seen by Provider: 01/23/25 09:15 Source: patient and family Mode of arrival: Wheelchair History of Present Illness HPI narrative: 69-year-old male presents for shortness of breath which she has had for about 3 days. He was recently diagnosed with acute asthma by a quill machine tender in [place]. He is on inhalers. He denies having a fever or productive cough. He states he gets worse at night and he gets very anxious because of it. No complaints of chest pain. Related Data Home Medications ?Medication ?Instructions ?Recorded ?Confirmed alfuzosin 10 mg tablet,extended 10 mg PO DAILY 5 01/23/25 release 24 hr fluticasone propionate 50 2 spray intranasal Q12H 03/2901/23/25 mcg/actuation nasal spray,suspension budesonide-formoterol HFA 160 inhalation 01/23/25 mcg-4.5 mcg/actuation aerosol inhaler Previous Rx's ?Medication ?Instructions ?Recorded albuterol sulfate 90 mcg/actuation 2 inh inhalation QI D PRN shortness 12/03/24 aerosol inhaler of breath or wheezing #8.5 g sofia azithromycin 250 mg tablet See Rx Instructions PO .COM PLEX #6 01/23/25 (Zithromax Z-Lele) tabs khkcaxyuel-xzkcprmcqhmqi-qkluwvow 1 cap PO Q6H PRN zach n 5 days #20 01/23/25 50 mg-300 mg-40 mg capsule caps (Fioricet) prednisone 10 mg tablet See Rx Instructions .Route 1 03/25/24 .COMPLEX #30 tabs Allergies Allergy/AdvReac Type Severity Reaction Status Date / Time No Known Drug Allergies Allergy Verified 01/23/25 09:17 Opioid HPI Opioid Management Most Recent Opioid Data: Last Pain Scale 8 Today, 09:55 Last MAR Pain Assessment Today, 09:55 Review of Systems ROS Narrative A ten point review of systems is negative except as noted above. PFSH PFSH Social History Little interest or pleasure in doing things: not at all Feeling down, depressed, or hopeless: not at all Exam Narrative Exam Narrative: Nurses note and vital signs reviewed General:The patient appears dyspneic but is not in acute distress Skin:Warm, dry, no pallor noted.There is no rash noted. Head:Normocephalic, atraumatic Eye: Normal conjunctiva, no drainage Ears, Nose, Mouth, and Throat: oral mucosa is moist. Nares patent. Cardiovascular:Regular Rate and Rhythm, not tachycardic Respiratory: He has bilateral rhonchi throughout. He has difficulty taking a deep breaths. Breath sounds are equal bilaterally Back:non-tender GI: Soft and nontender Musculoskeletal: The patient has no evidence of calf tenderness, no pitting edema, symmetrical pulses noted bilaterally Neurological:A&O, normal speech Psychiatric:Cooperative Constitutional Vital Signs, click to edit/add: Last Vital Signs Pulse 80 01/23/25 10:20 Resp 18 01/23/25 10:20 BP 123/88 01/23/25 10:09 Pulse Ox 90 L 01/23/25 10:20 O2 Del Method Nasal Cannula 01/23/25 09:40 O2 Flow Rate 2 01/23/25 09:40 Course Vital Signs Vital signs: Vital Signs Pulse Rate 88 01/23/25 09:09 Respiratory Rate 24 H 01/23/25 09:09 Blood Pressure 130/92 H 01/23/25 09:09 Pulse Oximetry 93 L 01/23/25 09:09 Oxygen Delivery Method Room Air 01/23/25 09:09 Pulse Rate 80 01/23/25 10:20 Respiratory Rate 18 01/23/25 10:20 Blood Pressure 123/88 01/23/25 10:09 Pulse Oximetry 90 L 01/23/25 10:20 Oxygen Delivery Method Nasal Cannula 01/23/25 09:40 Oxygen Delivery Flow Rate 2 01/23/25 09:40 Medical Decision Making [facility] Narrative Medical decision making narrative: The patient presented with significant wheezing and shortness of breath. He was given IV steroid and aerosol treatment and feels much better now. His lungs are essentially clear to auscultation. CTA shows no PE or pneumonia. He is being discharged home and will follow-up with his quill machine tender. Treatment diagnosis and follow-up were discussed with the patient. Differential Diagnosis Differential Diagnosis: Pneumonia, COVID, influenza, PE, asthma Lab Data Lab results reviewed: Yes I reviewed the patient's lab results Labs: Lab Results 01/23/25 01/23/25 Range/Units 09:35 09:37 WBC 10.2 (4.0-11.0) 10^3/uL RBC 5.06 (4.70-6.10) 10^6/uL Hgb 15.6 (14.0-18.0) g/dL Hct 45.9 (42.0-54.0) % MCV 90.7 (80.0-94.0) fL MCH 30.8 (25.9-34.0) pg MCHC 34.0 (29.9-35.2) g/dL RDW 13.4 (11.0-15.0) % Plt Count 183 (150-450) 10^3/uL MPV 10.0 (9.5-13.5) fL Neut % (Auto) 82.5 H (43.0-75.0) % Lymph % (Auto) 7.7 L (20.5-60.0) % Garland % (Auto) 5.4 (1.7-12.0) % Eos % (Auto) 3.9 (0.9-7.0) % Baso % (Auto) 0.3 (0.2-2.0) % Neut # (Auto) 8.4 H (1.4-6.5) 10^3/uL Lymph # (Auto) 0.8 L (1.2-3.8) 10^3/uL Garland # (Auto) 0.6 (0.3-0.8) 10^3/uL Eos # (Auto) 0.4 (0.0-0.7) 10^3/uL Baso # (Auto) 0.0 (0.0-0.1) 10^3/uL Abs Immat Gran (auto) 0.02 (0.00-0.03) 10^3/uL Imm/Tot Granulo (auto) 0.2 (0.0-0.5) % Sodium 141 (136-145) mmol/L Potassium 4.3 (3.5-5.1) mmol/L Chloride 105 (98-107) mmol/L Carbon Dioxide 26.9 (21.0-32.0) mmol/L Anion Gap 13.4 BUN 19.0 H (7.0-18.0) mg/dL Creatinine 1.14 (0.70-1.30) mg/dL Est GFR ( Amer) >60 (>=60 mL/min/1.73m^2) Est GFR (Non-Af Amer) >60 (>=60 mL/min/1.73m^2) BUN/Creatinine Ratio 16.7 Glucose 108 H (74-106) mg/dL Calcium 9.7 (8.5-10.1) mg/dL Troponin I High Sens 5.4 (4.0-76.1) pg/mL Influenza Type A Ag Negative Influenza Type B Ag Negative SARS-CoV-2 Ag (CV2AG) Negative (NEGATIVE) Imaging Data Chest x-ray: Radiologist's impression: ITS Impressions Chest X-Ray 01/23/25 09:25 IMPRESSION: NO ACUTE FINDINGS Impression dictated by: Nathaly Lake M.D. 01/23/2025 10:07 AM Dictation Location: [employer] Electronically authenticated by: [id number] Y Date: 01/23/2025 10:07 Chest CTA 01/23/25 10:32 IMPRESSION: NO OBVIOUS PULMONARY EMBOLISM HOWEVER EVALUATION PERIPHERALLY IS LIMITED BY RESPIRATORY MOTION. MINOR SCARRING AND/OR ATELECTASIS. STABLE NODULARITY INCLUDING GRANULOMATOUS DISEASE. NO OTHER ACUTE INTRATHORACIC FINDINGS. Impression dictated by: Nathaly Lake M.D. 01/23/2025 11:16 AM Dictation Location: [employer] Electronically authenticated by: [id number] Y Date: 01/23/2025 11:16 ECG Data Attestation: I personally reviewed and interpreted this ECG as follows: (EKG on my interpretation shows sinus rhythm with a rate of 90 and no acute change) Critical Care Time Critical Care Time Critical Care Time: Yes Total Critical Care Time: 35 Attestation: Due to the high probability of sudden and clinically significant deterioration in the patient's condition he/she required the highest level of my preparedness to intervene urgently I provided critical care time including documentation time, medication orders and management, reevaluation, vital sign assessment, ordering and reviewing of lab tests, ordering and reviewing of x-ray studies, and admission orders. Aggregate critical care time is 35 minutes including only time during which I was engaged in work directly related to his/her care and did not include time spent treating other patients simultaneously. Discharge Plan Discharge Chief Complaint: Shortness of Breath/Dyspnea Clinical Impression: Asthma with acute exacerbation Patient Disposition: Home, Self-Care Time of Disposition Decision: 11:34 Condition: Good Mode of Transportation: Private Vehicle Prescriptions / Home Meds: New mvbfxypixh-ktlbikiihvrzn-cyxr [Fioricet] 50-300-40 mg capsule 1 cap PO Q6H PRN (Reason: pain) 5 Days Qty: 20 0RF prednisone 10 mg tablet See Rx Instructions .ROUTE .COMPLEX Qty: 30 0RF Rx Instructions: 4 by mouth daily for three days then 3 by mouth daily for three days then 2 by mouth daily for three days then 1 by mouth daily for three days azithromycin [Zithromax Z-Lele] 250 mg tablet See Rx Instructions .ROUTE .COMPLEX Qty: 6 0RF Rx Instructions: For 250 mg dose pack: take 500 mg today (day 1), then 250 mg for 4 days (days 2-5) No Action fluticasone propionate 50 mcg/actuation spray,suspension 2 spray INTRANASAL Q12H alfuzosin 10 mg tablet extended release 24 hr 10 mg PO DAILY albuterol sulfate 90 mcg/actuation HFA aerosol inhaler 2 inh inhalation QID PRN (Reason: shortness of breath or wheezing) Qty: 8.5 0RF budesonide-formoterol 160-4.5 mcg/actuation HFA aerosol inhaler INHALATION Print Language: Bahamian Instructions: Asthma (ED) Referrals: Physician,Non-Staff, MD [Primary Care Provider] - 1 week
[2025-01-23] MEDS: ALBUTEROL SULFATE 2.5 MG/3 ML VIAL NEB IH (09:40)
[2025-01-23 09:45] LABS: Hematocrit 45.9 % (42.0-54.0); Hemoglobin 15.6 g/dL (14.0-18.0); Immature Granulocytes Abs Auto 0.02 10^3/uL (0.00-0.03); Immature Granulocytes Pct Auto 0.2 % (0.0-0.5); Lymphocytes Absolute Auto 0.8 10^3/uL (1.2-3.8); Mean Corpuscular HGB Conc 34.0 g/dL (29.9-35.2); Mean Corpuscular Hemoglobin 30.8 pg (25.9-34.0); Mean Corpuscular Volume 90.7 fL (80.0-94.0); Platelet Count 183 10^3/uL (150-450); Red Blood Count 5.06 10^6/uL (4.70-6.10); White Blood Count 10.2 10^3/uL (4.0-11.0)
[2025-01-23] MEDS: KETOROLAC TROMETHAMINE 30 MG/ML VIAL IVP (09:55)
[2025-01-23] MEDS: METHYLPREDNISOLONE SOD SUCC PF 125 MG/2 ML VIAL IVP (09:56)
[2025-01-23 09:58] LABS: Anion Gap 13.4; Blood Urea Nitrogen 19.0 mg/dL (7.0-18.0); Calcium 9.7 mg/dL (8.5-10.1); Carbon Dioxide 26.9 mmol/L (21.0-32.0); Chloride 105 mmol/L (98-107); Estimated GFR (African America >60 (>=60 mL/min/1.73m^2); Estimated GFR (Non-African Ame >60 (>=60 mL/min/1.73m^2); Glucose 108 mg/dL (74-106); Potassium 4.3 mmol/L (3.5-5.1); Sodium 141 mmol/L (136-145)
[2025-01-23 10:00] LABS: SARS-CoV-2 Ag NEGATIVE (NEGATIVE)
--- NOTE | 2025-01-23 10:32 | CT_ITS ---
The [address] [address] Patient Name: MARILIN BARTH MRN: [id number] date: 1955 Sex: M Assigned Patient Location: ER Current Patient Location: .MAIN Accession/Order Number: [id number] Exam Date: 01/23/2025 10:47 Report Date: 01/23/2025 11:16 At the request of: SARY BRANDON MD Procedure: CT angio chest CT PULMONARY ANGIOGRAM WITH CONTRAST CLINICAL HISTORY: Shortness of breath, nausea and vomiting for 6 weeks. R/o PE COMPARISON: 12/12/2024 TECHNIQUE: Spiral images were obtained through the chest following intravenous administration of 100 mL of Omnipaque 350. Images were reviewed using both narrow and wide window settings. Sagittal, coronal and 3 D volume-rendered reconstructions were performed and reviewed. This CT exam was performed using one or more following dose reduction techniques: Automated exposure control, adjustment of the mA and/or kV according to patient size, or use of iterative reconstruction technique. FINDINGS: The heart is not enlarged. There is no pericardial effusion. No aortic aneurysm or dissection is seen. There is adequate opacification of the pulmonary arteries. No central emboli are identified however evaluation of peripheral arterial branches, particularly at the lower lungs is limited by respiratory motion. There are few similar lymph nodes. Calcified hilar granulomas are seen on the left. Degenerative changes are present at the spine. There is minimal atelectasis or scarring. There is no developing consolidation, effusion or pneumothorax. Similar calcified and noncalcified pulmonary nodularity is seen. Limited cuts through the upper abdomen show diverticula at the imaged colon. Calcifications are again seen at the right hepatic dome. CT/CT angio chest IMPRESSION: NO OBVIOUS PULMONARY EMBOLISM HOWEVER EVALUATION PERIPHERALLY IS LIMITED BY RESPIRATORY MOTION. MINOR SCARRING AND/OR ATELECTASIS. STABLE NODULARITY INCLUDING GRANULOMATOUS DISEASE. NO OTHER ACUTE INTRATHORACIC FINDINGS. Impression dictated by: Nathaly Lake M.D. 01/23/2025 11:16 AM Dictation Location: [place] [address] Electronically authenticated by: [id number] Y Date: 01/23/2025 11:16
--- OUTSIDE RECORDS SUMMARY | 2025-01-23 11:08 | XMS_ITS | Clinical Summary ---
Author Organization [facility] Healthcare Address [address] [place] [address] Care Team Providers Care Storage Battery Charger Name Role Phone Julio Valdivia MD Primary Care Provider [phone] Allergies No known active allergies Medications MedicationSigDispense QuantityRefillsLast FilledStart DateEnd DateStatus fluticasone (Flonase) 50 MCG/ACT nasal spray Indications:Chronic maxillary sinusitisAdminister 2 sprays into each nostril Daily Shake gently. Before first use, prime pump. After use, clean tip and replace cap. 48 g 308508/6Active Active Problems ProblemNoted DateDiagnosed DateLower urinary tract symptoms (LUTS)02/05/2023PH (benign prostatic hyperplasia)3Chronic fokwuxpcyydv65/19/2023History of colonic haveql5206/15/2020 Overview (12/18/2022): Added automatically from request for surgery [id number] Quroyymfuct64/09/2020Localized fnqjxxafygajuu28/09/2020Mechanical loosening of prosthetic knee11/13/2018 Overview (12/18/2022): Added automatically from request for surgery [id number] Primary osteoarthritis of right knee01/31/2018 Overview (09/29/2024): Added automatically from request for surgery [id number] Urinary rtfiapuzl08/27/2018 Overview (09/29/2024): Lifelong history of voiding dysfunction [...] 04/29/24: stable using uroxatral Reactive airways dysfunction bdtnkuar52/11/2016 Resolved Problems ProblemNoted DateDiagnosed DateResolved DateChronic ethmoidal sinusitis hronic maxillary oijsxtfqs09Neuritis of left foot/eriostitis of ankle and foot without osteomyelitis /Screening for prostate qgsqmo39 Overview (12/18/2022): 02/04/20: PSA 2.03 Knee painNocturia Overview (12/18/2022): 12/10/19: Nocturia is quite bothersometo him despite Flomax 0.8 mg nightly. Although [...] would like to follow-up as needed. Erectile jmqbccccycq05 Overview (12/18/2022): ED - successfully treated with sildenafil. Prescription for generic provided with recommendation to separate from tamsulosin by 4 hr Bilateral primary osteoarthritis of kneeTrochanteric bursitis of left hipHematospermia Overview (12/18/2022): One episode of hematospermia 2016. This is benign. PSA normal. Immunizations ImmunizationAdministration DatesNext DueZoster, Tvzstneuyev91/30/2020,12/16/2019 Family History Medical HistoryRelationNameCommentsCancerFatherWilliam PertCancerMotherMargaret PertGlaucomaMotherMargaret PertBrain cancerSiblingRelationNameStatusComments FatherWilliam PertDeceasedMotherMargaret PertDeceasedSibling Social History Tobacco UseTypesPacks/DayYears UsedDateSmoking Tobacco: CywghkQqyvsibaqq156 03/05/1969 - 03/05/2001Smokeless Tobacco: Never Tobacco Cessation:Counseling Given: Not Answered Comments:Quit smoking 20+ years ago Alcohol UseStandard Drinks/WeekCommentsNot Currently0 (1 standard drink = 0.6 oz pure alcohol)Caffeine: 2-3 cups/daySex and Gender InformationValueDate Recorded Sex Assigned at BirthNot on fileLegal DjuUoni2305/17/2022 7:14 PM EDTGender IdentityNot on fileSexual OrientationNot on file Last Filed Vital Signs Vital SignReadingTime TakenCommentsBlood Tgrxcbdk729/7707 11:08 AM EDT Sswwp3108 11:08 AM EDTTemperature--Respiratory Rate--Oxygen Saturation-- Inhaled Oxygen Concentration--Vrscgl122 kg (251 lb)10/01/2024 11:08 AM EDTHeight 188 cm (6' 2 )10/01/2024 11:08 AM EDTBody Mass Index32.23010/01/2024 11:08 AM EDT Plan of Treatment Health MaintenanceDue DateLast DoneCommentsCT Juaerfkzcovm76/02/1956FIT-DNA 1955FIT1955FOBT1955 4249Obggcrmkztekz17/02/1956Pneumococcal Vaccine: 65+ Years (1 of 1 - PCV)05/04/2005COVID-19 Vaccine (4 - 2024- season) /, 06/29/2020, 06/01/2020Influenza Vaccine (#1)2024 11/27/2023, 01/26/2023, 12/19/2021, Additional history existsColonoscopy /olorectal Cancer Dukgldbfm20/21/2031 Insurance Care Teams Team MemberRelationshipSpecialtyStart DateEnd Date Julio Valdivia MD NPI: [id number] [place] [address], [address] [place] [address] PCP - GeneralFanhly Medicine09/25/24
--- OUTSIDE RECORDS SUMMARY | 2025-01-23 11:08 | XMS_ITS | Clinical Summary ---
Author Organization [facility] Address [address], [address] [place] [address] Care Team Providers Care Audit Tech Name Role Phone Unavailable Primary Care Provider Unavailabl e Encounters DateTypeDepartmentCare KklgCezrwigbfve60/13/2025bstract [facility] Pulmonology [address] [place] [address] [address] [place] [address] Adán Downey DO 12/10/2024Telephone [facility] [address] [place] [address] Adán Downey DO Otherfrom Last 3 Months Social History Tobacco UseTypesPacks/DayYears UsedDateSmoking Tobacco: Never Assessed CommentsUnknownSex and Gender InformationValueDate RecordedSex Assigned at Not on fileLegal LugXqqoji16/10/2013 11:39 AM ESTGender IdentityNot on file Sexual OrientationNot on file Plan of Treatment Health MaintenanceDue DateLast DoneCommentsDepression Igkezz6005/05/1967Hepatitis C jizisx3605/04/1973DTaP/Tdap/Td vaccine (1 - Tdap)05/04/1974Breast cancer screen 05/05/19951891Kqtgrs98/02/3400Bsycdebhhxf37/02/2001Colorectal Cancer Screen 05/04/2000FIT/FOBT: Average risk05/04/2000Fecal-DNA (Cologuard): Average risk 05/04/2000Sigmoidoscopy/CT drxluxqojmqr60/02/2001Pneumococcal 50+ years Vaccine (1 of 1 - PCV)05/04/2005DEXA (modify frequency per FRAX score)05/04/2010Flu vaccine (#1)511/, 12/19/2021, 12/16/2019, Additional history existsCOVID-19 Vaccine (2024- season)511/, 06/29/2020, 06/01/2020espiratory Syncytial Virus (RSV) or age 60 yrs+ (1 - 1-dose 75+ series)1Shingles uwzulmiUpvfgufnk78/30/2020, 12/16/2019Hepatitis A vaccineAged OutNo longer eligible based on patient's age to complete this topic Hepatitis B vaccineAged OutNo longer eligible based on patient's age to complete this topicHib vaccineAged OutNo longer eligible based on patient's age to complete this topicMeningococcal (ACWY) vaccineAged OutNo longer eligible based on patient's age to complete this topicMeningococcal B vaccineAged OutNo longer eligible based on patient's age to complete this topicPolio vaccineAged OutNo longer eligible based on patient's age to complete this topic
--- OUTSIDE RECORDS SUMMARY | 2025-01-23 11:08 | XMS_ITS | Clinical Summary ---
Author Organization Jimdo s tem Address [id number] [address] [place] [address] Care Team Providers Care Child Life Assistant Name Role Phone Julio Valdivia MD Primary Care Provider Allergies No known active allergies Medications MedicationSigDispense QuantityRefillsLast FilledStart DateEnd DateStatus alfuzosin (UROXATRAL) 10 mg 24 hr tablet Take 1 tablet (10 mg total) by mouth in the morning. 90 tablet 4Active albuterol (PROVENTIL HFA;VENTOLIN HFA) 90 mcg/actuation inhaler INHALE 2 PUFFS BY MOUTH EVERY 6 HOURS NEEDED FOR SHORTNESS OF BREATH 5Active guaiFENesin (MUCINEX) 1,200 mg tablet extended release 12hr Indications:Reactive airways dysfunction syndrome (CMS-HCC)Take 1 tablet by mouth in the morning and 1 tablet in the evening. 20 each 5Active tirzepatide, weight loss, 2.5 mg/0.5 mL pen injector Indications:Class 1 obesity due to excess calories without serious comorbidity with body mass index (BMI) of 33.0 to 33.9 in adultInject 2.5 mg under the skin every 7 days. 2 mL 5Active Active Problems Patient Care Coordination No te Formatting of this note migh t be different from the original. 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 Helper Urologist Primary Care Provider Over the next 12 months, Patient will complete the following tests, immunizations, and preventativescreenings: Annual Wellness Visit Depression Screening Fall Risk Assessment Flu vaccine Tdap Vaccine Prostate Screening 2023 Education: ProblemNoted DateDiagnosed DateLower urinary tract symptoms (LUTS)02/05/2023 History of colonic qhvpzt5106/15/2020 Overview (06/15/2020): Added automatically from request for surgery [id number] Screening for prostate pmkdjr2202/04/2020 Overview (02/04/2020): 02/04/20: PSA 2.03 Smepgwpragq41/09/2020Knee pain01/12/2020Localized vxpifavxoiaevq18/09/2020 Xqqmvfxr72/07/2020 Overview (01/24/2023): 12/10/19: Nocturia is quite bothersome to him despite Flomax 0.8 mg nightly. Although it seems counter intuitive with his history of retention, I think it would be worth having him try Myrbetriq 50 mgnightly. We will see him in the short-term to recheck PVR. 02/04/20: Minimal improvement with Myrbetriq 50 mg. PVR 10. He is not interested in pursuing any additional diagnostic or treatment options at this time. 01/24/23: Persistent symptoms. Interested in a trial of Uroxatral. Also advised cutting back on hisfluid intake. We will schedule cystoscopy Assessment & Plan (01/24/2023 5:07 PM EST): If his symptoms resolve with Uroxatral, he can cancel the cystoscopy. He is also due for his PSA. Urban notify him of the results through [employer] Assessment & Plan (02/04/2020 4:41 PM EST): He would like to follow-up as needed. Assessment & Plan (12/10/2019 5:26 PM EDT): I advised that he monitor his blood pressure and discontinue if elevated. He will go to the lab to check PSA as well. I will call him with the results. Mechanical loosening of prosthetic knee11/13/2018 Overview (11/13/2018): Added automatically from request for surgery [id number] Primary osteoarthritis of right knee01/31/2018 Overview (01/31/2018): Added automatically from request for surgery [id number] Erectile sseielbxlir81/02/2018 Overview (12/04/2017): ED - successfully treated with sildenafil. Prescription for generic provided with recommendation toseparate from tamsulosin by 4 hr Primary osteoarthritis of left knee05/22/2017 Overview (05/22/2017): Added automatically from request for surgery [id number] Bilateral primary osteoarthritis of knee05/10/2017Trochanteric bursitis of left hip05/10/2017Urinary efayeebrn32/27/2018 Overview (04/29/2024): Lifelong history of voiding dysfunction [...] to continue Uroxatral. 04/29/24: stable using uroxatral Xpbvwmmbyidmf25/27/2018 Overview (05/01/2017): One episode of hematospermia 2017. This is benign. PSA normal. Reactive airways dysfunction hkdddize70/11/2016BPH (benign prostatic hyperplasia) Encounters DateTypeDepartmentCare FxumLjhtzpiopyb46/01/2025Orders Only [facility] [address] [place] [address] Julio Valdivia MD 12/02/2024Telephone [facility] [address] [place] [address] Julio Valdivia MD 11/21/2024 3:15 PM EDTOffice Visit [facility] [address] [place] [address] Julio Valdivia MD Reactive airways dysfunction syndrome (CMS-HCC) (Primary Dx); Berylliosis (CMS-HCC); Class 1 obesity due to excess calories without serious comorbidity with body mass index (BMI) of 33.0 to 33.9 in adult11/20/2024Travelfrom Last 3 Months Immunizations ImmunizationAdministration DatesNext DueCOVID-19, mRNA, LNP-S, PF, 100mcg/0.5mL Dose06/29/2020,06/01/2020Hep B, Adolescent or Mcxuxpwzz50/13/2012,06/29/2011, 05/04/2011Influenza High Dose Preservative Free IM12/26/2017Influenza Vaccine, Quadrivalent, Licesuyzti17/24/2023,12/19/2021Influenza, Injectable, quadrivalent (PF)12/16/2019,12/05/2018Zoster Vaccine Ahxxszhwaij91/30/2020,12/16/2019 Family History Medical HistoryRelationNameCommentsBrain TumorBrotherTurner syndromeDaughter ArthritisFatherWilliam PertBlood ClotsFatherWilliam PertCirrhosisFatherWilliam Pertnon alcoholHeart attackFatherWilliam PertSnoringFatherWilliam PertCancer Gfrchx89mjjzXaxea mjfnexEighus60Hfnkcj hbqbzvqHpxkig65ByqkaSizcgz77vpcwz issues KhevehuVresls11Vltgeqp cfskojzCdktjp28Js Known ProblemsSister 1MargeArthritis Sister 2SueArthritisSister 3JeanArthritisSister 4DebbieNo Known ProblemsSister 5 EllenGlaucomaSister 6BetsyNo Known ProblemsSonRelationNameStatusCommentsBrother DeceasedDaughterAliveFatherWilliam QqqbSvhtjtknRgtdqz65ZqxmwlnoZfctdw 1Marge AliveSister 2SueAliveSister 3JeanAliveSister 4DebbieAliveSister 5EllenAlive Sister 6BetsyAliveSonAlive Social History Tobacco UseTypesPacks/DayYears UsedDateSmoking Tobacco: FormerCigarettes1.530.1 03/05/1968 - 04/03/1998Smokeless Tobacco: FormerChew Tobacco Cessation:Counseling Given: No Alcohol UseStandard Drinks/WeekCommentsNot Currently0 (1 standard drink = 0.6 oz pure alcohol)Overall Financial Resource Strain (CARDIA)AnswerDate RecordedHow hard is it for you to pay for the very basics like food, housing, medical care, and heating?Not hard at all06/14/2022HQ-2AnswerDate RecordedTotal Score2 07/01/2024PRAPARE - TransportationAnswerDate RecordedIn the past 12 months, has lack of transportation kept you from medical appointments or from getting medications?No06/14/2022In the past 12 months, has lack of transportation kept you from meetings, work, or from getting things needed for daily living?No 06/14/2022Housing InstabilityAnswerDate RecordedAre you worried or concerned that in the next two months you may not have stable housing that you own, rent or stay in as a part of a household?No06/14/2022hildcareAnswerDate Recorded VknkbrndeVslptog92/12/2019EmploymentAnswerDate RecordedEmploymentUnknown 08/14/2018Hunger ScreeningAnswerDate RecordedWithin the past 12 months we worried whether our food would run out before we got money to buy more.Never True04/29/2024Within the past 12 months the food we bought just didn't last and we didn't have money to get more.Never True04/29/2024Purpose - LifeAnswerDate RecordedPurpose and direction in jmvyLajbokx62/11/2021ex and Gender Information ValueDate RecordedSex Assigned at BirthNot on fileLegal MuwFfft7310/08/2014 11:26 AM EDTGender IdentityNot on fileSexual OrientationNot on file Last Filed Vital Signs Vital SignReadingTime TakenCommentsBlood Jcpuurcu824/8509/ 3:25 PM EDT Cfejr9991 3:25 PM GSLRuribouvkdr00.4 ??C (97.6 ??F)01/13/2022 1:22 PM ESTRespiratory Iyit0598 10:25 AM EDTOxygen Qyyowxmvuw78%11/21/2024 3:25 PM EDTInhaled Oxygen Concentration--Owncws694.3 kg (252 lb)11/21/2024 3:25 PM PUCAdzscc823.4 cm (6' 1 )11/21/2024 3:25 PM EDTBody Mass Index33.2509 3:25 PM EDT Plan of Treatment DateTypeDepartmentCare Team (Latest Contact Info)Bkjrsfuhzcu80/10/2026 1:00 PM EDTOffice Visit [facility] [address] [place] [address] [place] [address] Sundeep Rodriguez MD [facility] [place] [place] [address] Health MaintenanceDue DateLast DoneCommentsAdult BMI Follow Up Plan05/04/1973 DTaP,Tdap and Td Vaccines (1 - Tdap)05/04/1974Abdominal Aortic Aneurysm (AAA) Smfuid7205/04/2020OVID-19 Vaccine ( season)5011/27/2023, 01/26/2023, 12/19/2021, Additional history existsInfluenza Eovbgcm0711/03/2024 11/27/2023, 01/26/2023, 12/19/2021, Additional history existsDepression Dmlmmiguo98/Fall Risk Thtewbqdw03/Medicare Annual Wellness Visit/dult BMI Yklzrdbsq51/ Tobacco Bjcmoepva48/RSV ( or age 60+ yrs) (1 - 1-dose 75+ series)3768Nwodrvdnsbq94/21/203105/, 07/23/2020, 07/23/2020, Additional history existsZoster (Shingles) BtgjlhnAjqgfqpqf13/30/2020, 12/16/2019 Goals GoalPatient Goal TypeAssociated ProblemsRecent ProgressPatient-Stated?Author Home, outpt therapy Teri Edwards LSW Note: Evaluation of progress towards goal: Pt's discharge goal is home with and outpt therapy. - J CARLOS KAUR 03/14/19 3:06 PM Medical Devices ImplantedTypeAreaManufacturerDevice IdentifierShelf Expiration DateModel / Serial / LotCement Bn Palacos Radpq 40g Rpl [id number] - [id number] Implanted:Qty: 2 on 06/12/2017 by [facility]ementLeft: KneeZimmer [id number] / / [id number] Bn Bio 40gm Rpl [id number] - [id number] Implanted:Qty: 2 on 03/14/2019 by Rubén [facility] MD [facility]Right: KneeZimmer [id number] / / [id number] Clgn Parietex 4.6cm Comp Rsrb Xpd Ptch Slf Cntr Srg Sm Rpl [id number] - Sna - [id number] Implanted:Qty: 1 on 12/14/2020 [facility] AbdomenMEDTRONIC [facility]10/02/2024PCO4VP / NA / [id number] All-Poly Pat 38mm - [id number] Implanted:Qty: 1 on 06/12/2017 by [facility] ImplantLeft: KneeZimmer [id number] / / [id number] Fem 10 Std Kn Lt Cmnt - [id number] Implanted:Qty: 1 on 06/12/2017 by Rubén Hayes MD at [facility] ImplantLeft: KneeZimmer [id number] / / [id number] [facility] 10-12 G-H 11mm Kn Lt - [id number] Implanted:Qty: 1 on 06/12/2017 by Rubén Hayes MD at [facility] ImplantLeft: KneeZimmer [id number] / / [id number] Fem 10 Std Kn Rt Cmnt - [id number] Implanted:Qty: 1 on 03/12/2018 by Rubén Hayes MD at [facility] ImplantRight: KneeZimmer [id number] / / [id number] Ptlr 38mm Alply Psn - [id number] Implanted:Qty: 1 on 03/12/2018 by Rubén Hayes MD at [facility] ImplantRight: KneeZimmer [id number] / / [id number] Artc 10-12 G-H 11mm Kn Rt - [id number] Implanted:Qty: 1 on 03/12/2018 by Rubén Hayes MD at [facility] ImplantRight: KneeZimmer [id number] / / [id number] Artc 6-9 G-H 12mm Kn Rt Ps - [id number] Implanted:Qty: 1 on 03/14/2019 by Rubén Hayes MD at [facility] ImplantRight: KneeZimmer [id number] / / [id number] Tib 5d G Kn Lt Cmnt Stm - [id number] Implanted:Qty: 1 on 06/12/2017 by [facility]én [facility] at [facility]ateLeft: KneeZimmer [id number] / / [id number] Tib 5d G Kn Rt Cmnt Stm - [id number] Implanted:Qty: 1 on 03/12/2018 by Rubén Hayes MD [facility]ateRight: KneeZimmer [id number] / / [id number] Headframe 25mm 2.5mm Ea=Bill-Only - [id number] Implanted:Qty: 1 on 06/12/2017 by [facility]: KneeZimmer [id number] / / Ernesto [employer] Biomet Bone Cement R 1 X 40 Rapid Curing Synthetic Resin Implanted:Qty: 2 on 03/12/2018 by Rubén Hayes MD at [facility]: KotnEblvki90/31/2022/ / [id number]:NO CHARGE--TRIAL CEMENTPersona Revision Stem Extension 6mm Offset Splined 16mm Diameter +135mm Length Implanted:Qty: 1 on 03/14/2019 by Rubén Hayes MD at [facility]: KneeZimmer Civtyn1912/02/2028N/A / / [id number]:REF# [id number] Revision Femur Cemented Plus Right Size 9+ Implanted:Qty: 1 on 03/14/2019 by Rubén Hayes MD at [facility]: KneeZimmer Ytdbpj1012/02/2028N/A / / [id number]pz IdentifierShelf Expiration DateModel / Serial / LotScr Headframe 25mm 2.5mm - [id number] Explanted:Qty: 1 on 03/12/2018 by [facility]: KneeZimmer [id number] / / [id number] Headframe 25mm 2.5mm - [id number] Explanted:Qty: 1 on 03/14/2019 by [facility] at [facility]: KneeZimmer [id number] / / [id number]:USED FOR FIXATION OF CUTTING BLOCK ONLY Procedures Procedure NamePriorityDate/TimeAssociated UglgnvgepJxvqpxtaGHJXNZTDJKV09/21/2021 11:10 AM EDT from Last 3 Months or Most Recently Relevant to Health Maintenance Results * Colonoscopy (07/23/2020 11:10 AM EDT)Specimen (Source)Anatomical Location / LateralityCollection Method / VolumeCollection TimeReceived Time07/23/2020 11:10 AM EDT Narrative PM CARDIOVASCULAR - 07/23/2020 11:48 AM EDT [facility] Patient Name: Idris Fierro ?? Procedure Date No Time: 07/23/2020 ?? CSN: [id number] Date of : 1955 Admit Type: Outpatient Age: 65 Gender: Male Attending MD: Corrine Locke MD Procedure: ? Colonoscopy Indications: ? High risk colon cancer surveillance: Personal history ? of colonic polyps Providers: ? Corrine Locke MD Referring MD: ? Moderate Sedation: ? Medicines: ? Monitored Anesthesia Care Complications: ? No immediate complications. Procedure: ? Pre-Anesthesia Assessment: ? - Prior to the procedure, a History and Physical was ? performed, and patient medications and allergies were ? reviewed. The patient is competent. The risks and ? benefits of the procedure and the sedation options and ? risks were discussed with the patient. All questions ? were answered and informed consent was obtained. ? Patient identification and proposed procedure were ? verified by the physician, the nurse and the ? mechanist in the procedure room. Mental Status ? Examination: normal. Airway Examination: normal ? oropharyngeal airway and neck mobility. Respiratory ? Examination: clear to auscultation. CV Examination: ? normal. Prophylactic Antibiotics: The patient does not ? require prophylactic antibiotics. Prior ? Anticoagulants: The patient has taken no previous ? anticoagulant or antiplatelet agents. ASA Grade ? Assessment: II - A patient with mild systemic disease. ? After reviewing the risks and benefits, the patient ? was deemed in satisfactory condition to undergo the ? procedure. The anesthesia plan was to use monitored ? anesthesia care (MAC). Immediately prior to ? administration of medications, the patient was ? re-assessed for adequacy to receive sedatives. The ? heart rate, respiratory rate, oxygen saturations, ? blood pressure, adequacy of pulmonary ventilation, and ? response to care were monitored throughout the ? procedure. The physical status of the patient was ? re-assessed after the procedure. ? After I obtained informed consent, the scope was ? passed under direct vision. Throughout the procedure, ? the patient's blood pressure, pulse, and oxygen ? saturations were monitored continuously. The ? Colonoscope was introduced through the anus and ? advanced to the cecum, identified by the appendiceal ? orifice, ileocecal valve and palpation. The entire ? colon was not well visualized. The quality of the ? bowel preparation was poor. The patient tolerated the ? procedure well. Findings: ? Multiple small and large-mouthed diverticula were found in the entire ? colon. There was no evidence of diverticular bleeding. ? Non-bleeding internal hemorrhoids were found during retroflexion. The ? hemorrhoids were moderate, medium-sized and Grade II (internal ? hemorrhoids that prolapse but reduce spontaneously). Estimated Blood Loss: ??Estimated blood loss: none. Impression: ?- Preparation of the colon was poor. ? - Severe diverticulosis in the entire examined colon. ? There was no evidence of diverticular bleeding. ? - Non-bleeding internal hemorrhoids. ? - No specimens collected. Recommendation: ?- Discharge patient to home (ambulatory). ? - High fiber diet for the rest of the patient's life. ? - Repeat colonoscopy in 10 months for surveillance. ? - Return to my office PRN. Procedure Code(s): ? --- Professional --- ? G0105, Colorectal cancer screening; colonoscopy on ? individual at high risk Diagnosis Code(s): ? --- Professional --- ? Z12.11, Encounter for screening for malignant neoplasm ? of colon ? Z86.010, Personal history of colonic polyps ? K64.1, Second degree hemorrhoids ? K57.30, Diverticulosis of large intestine without ? perforation or abscess without bleeding CPT copyright 2019 [employer]. All rights reserved. The codes documented in this report are preliminary and upon wound care center consultant review may be revised to meet current compliance requirements. MD Corrine Stauffer MD 07/23/2020 11:48:08 AM This report has been signed electronically. Corrine Locke MD Number of Addenda: 0 Note Initiated On: 07/23/2020 11:10 AM Procedure Note Corrine Locke MD - 07/23/2020 [facility] Patient Name: Idris Fierro Procedure Date No Time: 07/23/2020 CSN: [id number] Date of : 1955 Admit Type: Outpatient [...] by the physician, the nurse and the mechanist in the procedure room. Mental Status Examination: [...] or abscess without bleeding CPT copyright 2019 [employer]. All rights reserved. The codes documented in this report are preliminary and upon wound care center consultant reviewmay be revised to meet current compliance requirements. MD Corrine Stauffer MD 07/23/2020 11:48:08 AM This report has been signed electronically. Corrine Locke MD Number of Addenda: 0 Note Initiated On: 07/23/2020 11:10 AM Authorizing ProviderResult TypeResult StatusCorrine Locke MDGI PROCEDURE ORDERABLESFinal ResultPerforming OrganizationAddressCity/State/ZIP CodePhone Number PM CARDIOVASCULAR from Last 3 Months or Most Recently Relevant to Health Maintenance Insurance Advance Directives * Full Code (Latest Code Status on File) Date ActivatedDate InactivatedComments06/12/2017 11:51 AM06/12/2017 8:03 PM NameRelationshipHealthcare Agent RelationshipCommunicationMelanie [facility] Health Care Agent* * Care Teams Team MemberRelationshipSpecialtyStart DateEnd Date Juloi Valdivia MD [address] [place] [address], [address] [place] [address] PCP - GeneralPediatrics1 Adrian Torres RN [facility] Nurse - SignalLamp5
--- OUTSIDE RECORDS SUMMARY | 2025-01-23 11:08 | XMS_ITS | Clinical Summary ---
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 240 mL 5Active predniSONE (DELTASONE) 10 mg tablet 4 tablets (40 mg) PO q AM daily for 3 days, Then 3 tablets (30 mg) PO q am daily for 3 days, then 2tablets (20 mg) PO q AM daily for 3 days, then 1 tablet (10 mg) po q AM daily x 3 days 30 tablet 5Active albuterol HFA (PROVENTIL HFA, VENTOLIN HFA) 90 mcg/actuation inhaler Inhale 2 puffs as instructed every 6 hours as needed for wheezing/shortness of breath. 1 each 5Active budesonide (PULMICORT) 0.5 mg/2 mL nebulizer solution Indications:Moderate persistent asthma with acute exacerbation (HCC),Chronic beryllium disease (HCC)Use 2 mL via nebulizer every 12 hours. Inhale over 5-15 minutes 120 mL 5Active budesonide-formoterol (SYMBICORT) 160-4.5 mcg/actuation inhaler Inhale 2 puffs as instructed two times a day. 3 each DiscontinuedHospital, Clinic, or Other Facility Administered MedicationOrdered DoseRouteFrequencyStart DateEnd DateStatus albuterol 2.5 mg /3 mL (0.083 %) 2.5 mg (PROVENTIL) Indications:Chronic beryllium disease (HCC)2.5 mgINHAS KMAYGB2112/31/2024 01/01/2025Ended Active Problems No known active problems Encounters DateTypeDepartmentCare IszuShgtydqqltw78/20/2025 Get Medical Advice [facility] PULMONARY/SLEEP/CRITICAL CARE [address] [place] [address] Corrine Waddell MD Bill Pert 6103/08/2024Telephone Pulmonary Medicine [address] [place] [address] Corrine Waddell MD Medication Yhzqwvsaagemo65/04/2025 Get Medical Advice [facility] PULMONARY/SLEEP/CRITICAL CARE [address] [place] [address] Corrine Waddell MD Medication side effects?12/31/2024 1:30 PM EDTOffice Visit [facility] PULMONARY/SLEEP/CRITICAL CARE [address] [address] Corrine Waddell MD Moderate persistent asthma with acute exacerbation (HCC) (Primary Dx); Chronic beryllium disease (HCC); Former weyfib7512/31/2024 1:00 PM EDT - 12/31/2024 11:59 PM EDTHospital Encounter [facility] [address] [place] [address] Interstitial pulmonary disease (HCC) [J84.9] Discharge Disposition: Home12/31/2024 12:30 PM EDTProcedure [facility] [address] [place] [address] Iuyjdqplkm74/29/2025 12:15 PM EDTProcedure [facility] [address] [place] [address] Tulsbybgzl82/29/2025Telephone [facility] PULMONARY/SLEEP/CRITICAL CARE [address] [facility] [address] [place] [address] Corrine Waddell MD 12/24/20248579Vtnezo05/29/2025Telephone Pulmonary Medicine [address] [address] Sánchez Becker WELCOME AND APPONTMENT REMINDER LETTERS (Sent [employer])11/24/2024Orders Only Pulmonary Medicine [address] [place] [phone] Precious Gaston, sensor technician beryllium disease (HCC) (Primary Dx); Interstitial pulmonary disease (HCC)from Last 3 Months Social History Tobacco UseTypesPacks/DayYears UsedDateSmoking Tobacco: FormerCigarettes Tobacco Cessation:Counseling Given: Not Answered Area Deprivation IndexAnswerDate RecordedNational Score (1-100), lower number is lower uvif574212/31/2024State Score (1-10), lower number is lower jtpa326 Data from: https://www.neighborhoodatlas.[facility].edu/. Last address used for thsejpbocfd[address] [place], [place] [address]/31/2024Sex and Gender InformationValue Date RecordedSex Assigned at PfnxjLgxs18/28/2025 9:04 AM ESTLegal SexMale 02/04/2012 9:24 AM ESTGender YrwtgnvrLzsf26/28/2025 9:04 AM ESTSexual OrientationNot on file Last Filed Vital Signs Vital SignReadingTime TakenCommentsBlood Nmbfbuxo205/7710 1:49 PM EDT Hzqbl953812/31/2024 1:49 PM EDTTemperature--Respiratory Rate--Oxygen Atgddhppzf15% 12/31/2024 1:49 PM EDTRAInhaled Oxygen Concentration--Wtjtok234.4 kg (250 lb) 12/31/2024 1:49 PM QRGAgbwyd631.9 cm (6')12/31/2024 1:49 PM EDTBody Mass Index 33.9112/31/2024 1:49 PM EDT Plan of Treatment DateTypeDepartmentCare Team (Latest Contact Info)Qgabbycdcfo91/09/2026 11:00 AM ESTProcedure Pulmonary Medicine [address] [place] [address] Chronic beryllium disease (HCC) [J63.2]04/13/2025 12:00 PM ESTOffice Visit Pulmonary Medicine [address] [place] [address] Malik Win MD [address] [place] [address] Chronic beryllium disease (Health MaintenanceDue DateLast DoneCommentsAbdominal Aortic Aneurysm Pfsyecggb32/02/1956Anxiety Uscrdsypf88/02/1974Depression Tnkthpsmc11/02/1974Hepatitis C Gwowzvzgs62/02/1974DTaP,Tdap,Td Vaccine (1 - Tdap)05/04/1974CT Kvmuuxprwgeu15/02/2001Cologuard (FIT-DNA)05/04/2000Fecal Occult Blood05/04/20000579Dkebuqioydiyv50/02/2001Pneumococcal Vaccine: 50+ (1 of 1 - PCV)05/04/20054029Tnvbeskmdsa17/21/202205/olorectal Cancer Screening 07/23/2021dvance Directive Hfkogeciir22/01/2025Covid-19 Vaccine ( season)/, 01/18/2021, 06/29/2020, Additional history exists Influenza Vaccine (#1)/, 11/27/2023, 01/26/2023, Additional history existsDiabetes Ctkwtoian66/, 09/26/2022, 12/08/2020, Additional history existsLipid Xrlbacimw28RSV Vaccine (1 - 1- dose 75+ series)1Shingrix LuggohkObqpsnrfj48/30/2020, 12/16/2019 Procedures Procedure NamePriorityDate/TimeAssociated DiagnosisCommentsCT CHEST WO IVCON Ylouyjx6512/31/2024 1:56 PM EDT Interstitial pulmonary disease (HCC) SPIROMETRY WITH DILATOR IF CCUEKXCIWLPqujeaa53/29/2025 12:21 PM EDT Chronic beryllium disease (HCC) LUNG DIFFUSION CAPACITY (DLCO)Jahydia5512/31/2024 12:21 PM EDT Chronic beryllium disease (HCC) from Last 3 Months Results * CT CHEST WO IVCON (12/31/2024 1:56 PM EDT)Anatomical RegionLateralityModality ChestComputed TomographySpecimen (Source)Anatomical Location / Laterality Collection Method / VolumeCollection TimeReceived Time12/31/2024 1:56 PM EDT Impressions 01/10/2025 3:09 PM EST IMPRESSION: 1. ??No convincing evidence of interstitial lung disease. 2. ??Mild diffuse bronchial wall thickening with a few foci of mucus plugging in the LEFT lower lobe. This is most commonly seen with bronchitis or reactive airway disease. Machine Group Leader: PSCB ?? Transcribe Date/Time: Jan ??2024 ??3:02P Dictated by : REBEKAH MCNEIL MD This examination was interpreted and the report reviewed and electronically signed by: REBEKAH MCNEIL MD on Jan ??2024 ??3:07PM ??EST Narrative 01/10/2025 3:09 PM EST * * *Final Report* * * DATE OF EXAM: Dec 31 2024 ??1:56PM ?? [facility] ?? 0541 ??- ??CT CHEST WO IVCON ??/ PROCEDURE REASON: Interstitial pulmonary disease (HCC) ? * * * * Physician Interpretation * * * * EXAMINATION: ??CHEST CT WITHOUT CONTRAST CLINICAL HISTORY: Interstitial pulmonary disease. Technique: ??Spiral CT acquisition of the chest from the thoracic inlet to the upper abdomen without contrast. MQ: ??CTCWO_6 CT Radiation dose: Integrated Dose-length product (DLP) for this visit = ?? 814.20 mGy*cm CT Dose Reduction Employed: Automated exposure control (AEC) Comparison: Images from CT chest performed at outside facility on 12/25/2018. RESULT: Limitations: ??None. Lines, tubes, and devices: ??None. Lung parenchyma and airways: Calcified granuloma in the LEFT upper lobe on series 5 image 108. ??Additional calcified granuloma in the RIGHT upper lobe on series 5 image 108. ??5 mm nodule the middle lobe on series 5 image 167 is unchanged since 2019 and therefore benign. ??Additional 4 mm nodule in the RIGHT lower lobe on series 5 image 186 is also unchanged. ?? Subtle groundglass attenuation in the bilateral lower lobes is favored to represent sequelae of mild atelectasis rather than inflammatory or interstitial changes. ??No other reticular opacities, traction bronchiectasis, groundglass opacities, or honeycombing. ??Mild diffuse bronchial wall thickening. ??A few foci of mucus plugging are present in the subsegmental bronchi of the LEFT lower lobe. ??No significant air trapping is appreciated on extradural images. Pleural space: ??No pleural effusion. ??No pleural thickening. Lower neck, lymph nodes, and mediastinum: ??The imaged thyroid gland is normal. ??No lymphadenopathy in the supraclavicular, axillary, mediastinal, or hilar regions. Heart, pericardium, and thoracic vessels: ??The thoracic aorta and main pulmonary artery are normal in caliber. The cardiac chambers are normal in size. ??Mild coronary artery atherosclerotic calcifications are noted, although the study is not optimized for coronary assessment. No pericardial effusion or thickening. Bones and soft tissues: ??No destructive bone lesion. ??Degenerative changes of the thoracic spine. Upper abdomen: ??Calcified granulomas are present in the posterior RIGHT hepatic lobe. ??Colonic diverticulosis. Localizer images: No additional findings. Procedure Note Provider, [facility] [place] - 01/10/2025 * * *Final Report* * * DATE OF EXAM: Dec 31 2024 1:56PM [facility] 0541 - CT CHEST WO IVCON / PROCEDURE REASON: Interstitial pulmonary disease (HCC) * * * * Physician Interpretation * * * * EXAMINATION: CHEST CT WITHOUT CONTRAST CLINICAL HISTORY: Interstitial pulmonary disease. Technique: Spiral CT acquisition of the chest from the thoracic inlet to the upper abdomen without contrast. MQ: CTCWO_6 CT Radiation dose: Integrated Dose-length product (DLP) for this visit = 814.20 mGy*cm CT Dose Reduction Employed: Automated exposure control (AEC) Comparison: Images from CT chest performed at outside facility on 12/25/2018. RESULT: Limitations: None. Lines, tubes, and devices: None. Lung parenchyma and airways: Calcified granuloma in the LEFT upper lobe on series 5 image 108. Additional calcified granuloma in the RIGHT upper lobe on series 5 image 108. 5 mm nodule the middle lobe on series 5 image 167 is unchanged since 2019 and therefore benign. Additional 4 mm nodule in the RIGHT lower lobe on series 5 image 186 is also unchanged. Subtle groundglass attenuation in the bilateral lower lobes is favored to represent sequelae of mild atelectasis rather than inflammatory or interstitial changes. No other reticular opacities, traction bronchiectasis, groundglass opacities, or honeycombing. Mild diffuse bronchial wall thickening. A few foci of mucus plugging are present in the subsegmental bronchi of the LEFT lower lobe. No significant air trapping is appreciated on extradural images. Pleural space: No pleural effusion. No pleural thickening. Lower neck, lymph nodes, and mediastinum: The imaged thyroid gland is normal. No lymphadenopathy in the supraclavicular, axillary, mediastinal, or hilar regions. Heart, pericardium, and thoracic vessels: The thoracic aorta and main pulmonary artery are normal in caliber. The cardiac chambers are normal in size. Mild coronary artery atherosclerotic calcifications are noted, although the study is not optimized for coronary assessment. No pericardial effusion or thickening. Bones and soft tissues: No destructive bone lesion. Degenerative changes of the thoracic spine. Upper abdomen: Calcified granulomas are present in the posterior RIGHT hepatic lobe. Colonic diverticulosis. Localizer images: No additional findings. IMPRESSION IMPRESSION: 1. No convincing evidence of interstitial lung disease. 2. Mild diffuse bronchial wall thickening with a few foci of mucus plugging in the LEFT lower lobe. This is most commonly seen with bronchitis or reactive airway disease. Machine Group Leader: PSCB Transcribe Date/Time: Jan 10 2025 3:02P Dictated by : REBEKAH MCNEIL MD This examination was interpreted and the report reviewed and electronically signed by: REBEKAH MCNEIL MD on Jan 10 2025 3:07PM EST Authorizing ProviderResult TypeResult StatusMaeve MacMurdo MDCT-PAMAFinal Result * LUNG DIFFUSION CAPACITY (DLCO) (12/31/2024 12:21 PM EDT)ComponentValueRef RangeTest MethodAnalysis TimePerformed AtPathologist SignatureFVC PRE (L)3.78L PULMONARY FUNCTION LABFVC POST (L)4.68LPULMONARY FUNCTION LABFVC PREDICTED (L) 4.39LPULMONARY FUNCTION LABFVC LLN (L)3.27LPULMONARY FUNCTION LABFVC ULN (L) 5.53LPULMONARY FUNCTION LABFEV1 PRE (L)1.69LPULMONARY FUNCTION LABFEV1_POST (L)2.45LPULMONARY FUNCTION LABFEV1 PREDICTED (L)3.30LPULMONARY FUNCTION LAB FEV1 LLN (L)2.41LPULMONARY FUNCTION LABFEV1 ULN (L)4.13LPULMONARY FUNCTION LAB FEV1/FVC PRE (%)45%PULMONARY FUNCTION LABFEV1/FVC POST (%)52%PULMONARY FUNCTION LABFEV1/FVC PREDICTED (%)76%PULMONARY FUNCTION LABFEV1/FVC LLN (%)63% PULMONARY FUNCTION YCWPCY23% PRE (L/S)1.70L/SPULMONARY FUNCTION EAQRNB58% POST (L/S)3.14L/SPULMONARY FUNCTION TQGTZC92% PRE (L/S00.21L/SPULMONARY FUNCTION JZWALH47% POST (L/S)0.78L/SPULMONARY FUNCTION HAVVRT29% PREDICTED (L/S)0.72L/S PULMONARY FUNCTION XQAZHS63% LLN (L/S)0.26L/SPULMONARY FUNCTION KLMLQL22% ULN (L/S)1.84L/SPULMONARY FUNCTION PCYXLZ46-67% PRE (L/S)0.46L/SPULMONARY FUNCTION FLDSKK48-66% POST (L/S)1.49L/SPULMONARY FUNCTION TPSTFE31-13% PREDICTED (L/S) 2.58L/SPULMONARY FUNCTION IJLHMW07-72% LLN (L/S)1.13L/SPULMONARY FUNCTION LAB PEF PRE (L/S)5.01L/SPULMONARY FUNCTION LABPEF POST (L/S)6.38L/SPULMONARY FUNCTION LABPEF LLN (L/S)6.40L/SPULMONARY FUNCTION LABPEF ULN (L/S)11.30L/S PULMONARY FUNCTION LABVC (L) BOX3.76LPULMONARY FUNCTION LABSVC PREDICTED (L) 4.39L/SPULMONARY FUNCTION LABSVC LLN (L)3.27L/SPULMONARY FUNCTION LABSVC ULN (L)5.53L/SPULMONARY FUNCTION LABIC BOX (L)3.20LPULMONARY FUNCTION LABIC PREDICTED (L)2.93L/SPULMONARY FUNCTION LABERV BOX (L)0.55LPULMONARY FUNCTION LABERV PREDICTED (L)1.46L/SPULMONARY FUNCTION LABDLCO (ml/min/mmHg)31.97 ml/min/mmHgPULMONARY FUNCTION LABDLCO PREDICTED (ml/min/mmHg)27.47ml/min/mmHg PULMONARY FUNCTION LABDLCO LLN (ml/min/mmHg)20.22ml/min/mmHgPULMONARY FUNCTION LABDLCO ULN (ml/min/mmHg)36.09ml/min/mmHgPULMONARY FUNCTION LABFET PRE (S) 15.93SPULMONARY FUNCTION LABFET POST (S)15.37SPULMONARY FUNCTION LABVA (L)6.41 LPULMONARY FUNCTION LABVA PREDICTED (L)6.89LPULMONARY FUNCTION LABDLCO/VA (ml/min/mmHg/L)0.05ml/min/mmHg/LPULMONARY FUNCTION LABDLCO/VA PREDICTED (ml/min/mmHg/L)0.04ml/min/mmHg/LPULMONARY FUNCTION LABDLCOcor (ml/min/mmHg) 31.47ml/min/mmHgPULMONARY FUNCTION LABDLCOcor PREDICTED (ml/min/mmHg)27.47 ml/min/mmHgPULMONARY FUNCTION LABDLCO/VAcor (ml/min/mmHg/L)0.05ml/min/mmHg/L PULMONARY FUNCTION LABSpecimen (Source)Anatomical Location / Laterality Collection Method / VolumeCollection TimeReceived Time12/31/2024 12:21 PM EDT Narrative PULMONARY FUNCTION LAB - 12/31/2024 6:39 PM EDT [facility] ? [address] [place], [place] [address] ? Test Date: ? 2024-12-31 Pat Name: ?MARILIN BARTH ?Department: ?Room: ? Gender: ?Male ?Extension Educator: ? : ? 1955 ?Requested By: ?? Order Number: ??[id number] ? Reading MD: ?Marilin Galaviz, DO ? Interpretive Statements Pre- FEV1 repeatable x 2. The two largest FVCs were not repeatable. Spirometry attempted x 2. Pt had a coughing fit and became very lightheaded and felt like he was going to pass out. DLCO attempted x 1. ??Pt had another coughing fit and became very lightheaded and felt like he was going to pass out. Medications and Allergies were reviewed for possible drug interactions per policy. No contraindications or sensitivities were noted. Meds taken: 1 hour before testing. Aerosol given with 0.083% albuterol x 10 minutes. HR pre= 78/min, HR post=74 /min. Post- Current ATS/ERS acceptability and repeatability standards for spirometry met. Start of test and EOFE criteria met. Pt had did not cough post-albuterol. IMPRESSION: Spirometry indicates severe obstruction. There is a significant bronchodilator response. The increase in FEF 25-75 post-bronchodilator reflects an improvement in the small airway obstruction. The vital capacity is normal. The diffusing capacity is normal. Electronically Signed On 12-31-2024 18:39:02 EDT by Marilin Galaviz, DO ID: [id number] ?Name: MARILIN BARTH ?Race: White Ht: 72.00 in ?Wt: 254.00 lbs ?Age: 69 Gender: Male ?: 1955 ?Dx: Berylliosis Smoking Hx: Non-smoker ?Doctor: MALIK WIN Test Date: 12/31/2024 ?Site: [facility] ?Tech: Ira Santos ?PRE-BRONCH ? POST-BRONCH ?Dori ?LLN ?? Pred ?ULN %Pred ZScore ?? Dori %Pred ??%Chg ZScore SPIROMETRY FVC ? 3.78 ?? 3.27 ?? 4.39 ?? 5.53 ?86 ??-0.90 ?? 4.68 ?? 106 ?20 ?? 0.42 FEV1 ?1.69 ?? 2.41 ?? 3.30 ?? 4.13 ?51 ??-2.89 ?? 2.45 ?74 ?22 ??-1.58 FEV1/FVC ?0.45 ?? 0.63 ?? 0.76 ?? 0.87 ?58 ??-3.26 ?? 0.52 ?68 ?16 ??-2.70 FEFMax ?5.01 ?? 6.40 ?? 8.85 ??11.30 ?56 ??-2.57 ?? 6.38 ?72 ?27 ??-1.66 FEF50 ? 0.49 ?? 2.29 ?? 4.42 ?? 6.54 ?11 ??-3.04 ?? 1.59 ?35 ?? 221 ??-2.19 FIF50 ? 2.37 ? 4.86 ? 104 ? FEF50/FIF50 ? 0.21 ?90-100 ? 0.33 ?56 ? FIVC ?3.40 ? 4.05 ?19 ? PYT88-81 ?0.46 ?? 1.13 ?? 2.58 ?? 4.63 ?17 ??-2.81 ?? 1.49 ?57 ?? 224 ??-1.17 ExpiredTime ?15.93 ?15.37 ?-3 ? TimeToFEFMax ?0.06 ? 0.07 ?26 ? ONIEL ? 0.03 ? 0.07 ? 117 ? VolExtrap% ? 1 ?2 ?75 ? LUNG VOLUMES ERV ? 0.55 ?1.46 ? 37 ? SVC ? 3.76 ?? 3.27 ?? 4.39 ?? 5.53 ?85 ??-0.93 ? IC ?3.20 ?2.93 ?109 ? LUNG DIFFUSION DLCOunc ?31.97 ??20.22 ??27.47 ??36.09 ?? 116 ?? 0.89 ? DLCOStdPB ?31.47 ??20.22 ??27.47 ??36.09 ?? 114 ?? 0.80 ? VA ?6.41 ?? 5.55 ?? 6.89 ?? 8.34 ?92 ??-0.58 ? Kco ? 4.91 ?? 2.98 ?? 4.01 ?? 5.14 ?? 122 ?? 1.33 ? Comments: Pre- FEV1 repeatable x 2. The two largest FVCs were not repeatable. Spirometry attempted x 2. Pt had a coughing fit and became very lightheaded and felt like he was going to pass out. DLCO attempted x 1. ??Pt had another coughing fit and became very lightheaded and felt like he was going to pass out. Medications and Allergies were reviewed for possible drug interactions per policy. No contraindications or sensitivities were noted. Meds taken: 1 hour before testing. Aerosol given with 0.083% albuterol x 10 minutes. HR pre= 78/min, HR post=74 /min. Post- Current ATS/ERS acceptability and repeatability standards for spirometry met. Start of test and EOFE criteria met. Pt had did not cough post-albuterol. Authorizing ProviderResult TypeResult StatusMaeve MacMurdo MDSCHEDULED PROCEDURESFinal ResultPerforming OrganizationAddressCity/State/ZIP CodePhone Number PULMONARY FUNCTION LAB [address] [place] [address] * SPIROMETRY WITH DILATOR IF OBSTRUCTED (12/31/2024 12:21 PM EDT)Specimen (Source)Anatomical Location / LateralityCollection Method / VolumeCollection TimeReceived Time12/31/2024 12:21 PM EDT Narrative PULMONARY FUNCTION LAB - 12/31/2024 6:39 PM EDT [facility] ? [address] [place], [place] [address] ? Test Date: ? 2024-12-31 Pat Name: ?MARILIN BARTH ?Department: ?Room: ? Gender: ?Male ?Extension Educator: ? : ? 1955 ?Requested By: ?? Order Number: ??[id number] ? Reading MD: ?Marilin Galaviz, DO ? Interpretive Statements Pre- FEV1 repeatable x 2. The two largest FVCs were not repeatable. Spirometry attempted x 2. Pt had a coughing fit and became very lightheaded and felt like he was going to pass out. DLCO attempted x 1. ??Pt had another coughing fit and became very lightheaded and felt like he was going to pass out. Medications and Allergies were reviewed for possible drug interactions per policy. No contraindications or sensitivities were noted. Meds taken: 1 hour before testing. Aerosol given with 0.083% albuterol x 10 minutes. HR pre= 78/min, HR post=74 /min. Post- Current ATS/ERS acceptability and repeatability standards for spirometry met. Start of test and EOFE criteria met. Pt had did not cough post-albuterol. IMPRESSION: Spirometry indicates severe obstruction. There is a significant bronchodilator response. The increase in FEF 25-75 post-bronchodilator reflects an improvement in the small airway obstruction. The vital capacity is normal. The diffusing capacity is normal. Electronically Signed On 12-31-2024 18:39:02 EDT by Marilin Galaviz, ID: [id number] ?Name: MARILIN BARTH ?Race: White Ht: 72.00 in ?Wt: 254.00 lbs ?Age: 69 Gender: Male ?: 1955 ?Dx: Berylliosis Smoking Hx: Non-smoker ?Doctor: MALIK WIN Test Date: 12/31/2024 ?Site: [facility] ?Tech: Ira Santos ?PRE-BRONCH ? POST-BRONCH ?Dori ?LLN ?? Pred ?ULN %Pred ZScore ?? Dori %Pred ??%Chg ZScore SPIROMETRY FVC ? 3.78 ?? 3.27 ?? 4.39 ?? 5.53 ?86 ??-0.90 ?? 4.68 ?? 106 ?20 ?? 0.42 FEV1 ?1.69 ?? 2.41 ?? 3.30 ?? 4.13 ?51 ??-2.89 ?? 2.45 ?74 ?22 ??-1.58 FEV1/FVC ?0.45 ?? 0.63 ?? 0.76 ?? 0.87 ?58 ??-3.26 ?? 0.52 ?68 ?16 ??-2.70 FEFMax ?5.01 ?? 6.40 ?? 8.85 ??11.30 ?56 ??-2.57 ?? 6.38 ?72 ?27 ??-1.66 FEF50 ? 0.49 ?? 2.29 ?? 4.42 ?? 6.54 ?11 ??-3.04 ?? 1.59 ?35 ?? 221 ??-2.19 FIF50 ? 2.37 ? 4.86 ? 104 ? FEF50/FIF50 ? 0.21 ?90-100 ? 0.33 ?56 ? FIVC ?3.40 ? 4.05 ?19 ? JOC59-08 ?0.46 ?? 1.13 ?? 2.58 ?? 4.63 ?17 ??-2.81 ?? 1.49 ?57 ?? 224 ??-1.17 ExpiredTime ?15.93 ?15.37 ?-3 ? TimeToFEFMax ?0.06 ? 0.07 ?26 ? ONIEL ? 0.03 ? 0.07 ? 117 ? VolExtrap% ? 1 ?2 ?75 ? LUNG VOLUMES ERV ? 0.55 ?1.46 ? 37 ? SVC ? 3.76 ?? 3.27 ?? 4.39 ?? 5.53 ?85 ??-0.93 ? IC ?3.20 ?2.93 ?109 ? LUNG DIFFUSION DLCOunc ?31.97 ??20.22 ??27.47 ??36.09 ?? 116 ?? 0.89 ? DLCOStdPB ?31.47 ??20.22 ??27.47 ??36.09 ?? 114 ?? 0.80 ? VA ?6.41 ?? 5.55 ?? 6.89 ?? 8.34 ?92 ??-0.58 ? Kco ? 4.91 ?? 2.98 ?? 4.01 ?? 5.14 ?? 122 ?? 1.33 ? Comments: Pre- FEV1 repeatable x 2. The two largest FVCs were not repeatable. Spirometry attempted x 2. Pt had a coughing fit and became very lightheaded and felt like he was going to pass out. DLCO attempted x 1. ??Pt had another coughing fit and became very lightheaded and felt like he was going to pass out. Medications and Allergies were reviewed for possible drug interactions per policy. No contraindications or sensitivities were noted. Meds taken: 1 hour before testing. Aerosol given with 0.083% albuterol x 10 minutes. HR pre= 78/min, HR post=74 /min. Post- Current ATS/ERS acceptability and repeatability standards for spirometry met. Start of test and EOFE criteria met. Pt had did not cough post-albuterol. Authorizing ProviderResult TypeResult StatusMaeve MacMurdo MDSCHEDULED PROCEDURESFinal ResultPerforming OrganizationAddressCity/State/ZIP CodePhone Number PULMONARY FUNCTION LAB [address] [facility]. [place] [phone] from Last 3 Months Insurance
--- OUTSIDE RECORDS SUMMARY | 2025-01-23 11:08 | XMS_ITS | Encounter Summary ---
Author Organization [facility] Address [address] [place] [id number] Care Team Providers Care Painter Assistant Name Role Phone Unavailable Primary Care Provider Unavailabl e Source Comments In the event this information is protected by the Federal Confidentiality of Alcohol and Drug AbusePatient Records regulations: The Federal rules restrict any use of the information to criminally investigate or prosecute any alcohol or drug abuse patient.[facility] Encounter Details DateTypeDepartmentCare Team (Latest Contact Info)Eqggceftxkx59/20/2025 Get Medical Advice [facility] PULMONARY/SLEEP/CRITICAL CARE [address] [address] Corrine Waddell MD [address] [place] [place] [phone] Manjit Fierro 1955 Social History Tobacco UseTypesPacks/DayYears UsedDateSmoking Tobacco: FormerCigarettesArea Deprivation IndexAnswerDate RecordedNational Score (1-100), lower number is lower [id number]/31/2024State Score (1-10), lower number is lower [id number] Data from: https://www.neighborhoodatlas.medicine.[facility].edu/. Last address used for l[address] [facility]12/31/2024Sex and Gender InformationValue Date RecordedSex Assigned at OjlonOyeo11/28/2025 9:04 AM ESTLegal SexMale 02/04/2012 9:24 AM ESTGender HxryhygoVvyw42/28/2025 9:04 AM ESTSexual OrientationNot on filedocumented as of this encounter Plan of Treatment DateTypeDepartmentCare Team (Latest Contact Info)Eyagfhehkhx32/09/2026 11:00 AM ESTProcedure Pulmonary Medicine [address] [place] [address] Chronic beryllium disease (HCC) [J63.2]04/13/2025 12:00 PM ESTOffice Visit Pulmonary Medicine [address] [place] [address] Anila Higgins MD [address] [place], [place] [id number] Chronic beryllium disease (documented as of this encounter Visit Diagnoses Diagnosis Moderate persistent asthma with acute exacerbation (HCC)- Primary 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
== END 2025-01-23 11:58 | disposition home or self-care (01) ==
PROVIDERS: Emergency Provider Emergency Medicine
DX: J45.901 Unspecified asthma with (acute) exacerbation (principal); R06.02 Shortness of breath
CPT/HCPCS: 36415; 71045; 71275; 80048; 84484; 85025; 87804; 87811; 93005; 94640; 96374; 96375; 99285; J1885; J2405; J2919; Q9967